=== PATIENT | male | born 1960 | race Caucasian/White ===

== ENCOUNTER 2021-11-05 07:32 | Day surgery (SDC) | payer BC, SELFPAY ==
[2021-11-05 06:40] VITALS: BP 102/71; PULSE 93; RESP 16; TEMP 36.3; O2SAT 95; BMI 34.9
--- NOTE | 2021-11-05 08:18 | PM.ORPRC ---
Procedure Note Date of procedure: 11/05/21 Procedure: Preop diagnosis: Right upper extremity carpal tunnel syndrome Postop diagnosis: Right upper extremity carpal tunnel syndrome Procedure: Right upper extremity carpal tunnel release Anesthesia: Local Surgeon: Richard Grant MD civil engineering assistant: Fady Galeana PA-C EBL: 5 mL Complications: None Specimens: None Drains: None Indications: The patient has a history of right upper extremity carpal tunnel syndrome symptoms. Despite appropriate nonoperative management consisting of nighttime bracing and occupational therapy they continue to have symptoms. Operative intervention was recommended. The risks, benefits alternatives and expected outcomes were discussed in detail. These included but were not limited to: Infection, bleeding, injury to blood vessel or nerve, venous thromboembolism. All questions were answered to their satisfaction. The patient was placed supine on the operating room table. Local anesthesia was established with 0.5% Marcaine without epinephrine and 2% lidocaine without epinephrine. The hand was prepped and draped in usual sterile fashion. The limb was elevated the forearm pneumatic tourniquet was inflated to 250 mm of mercury. A longitudinal incision was made centered over the radial border of the ring finger at the base of the palm. Subcutaneous dissection was sharply taken through the palmar fascia and the palmaris brevis to the transverse carpal ligament. The ligament was divided in line with the incision. Proximal and distal dissection was carried with tenotomy and Metzenbaum scissors for a wide decompression of the carpal tunnel. The tourniquet was released , bleeding was controlled with direct pressure. The wound was closed with a 3-0 nylon. A bulky dry dressing was applied, sponge and needle counts were correct x 2. The patient tolerated the procedure well, there were no apparent complications. They were sent to same day surgery in satisfactory condition. Plan: Use of the hand as tolerates. Discontinue the intraoperative dressing on postoperative day 3 and may get the wound wet as tolerates. Follow up in the office in 2 weeks for a wound check and suture removal.
--- NOTE | 2021-11-06 07:37 | SUR.PHASEII ---
Late entries for charting and hold que activation due to system downtime.
--- NOTE | 2021-11-14 10:48 | SUR.OPER ---
late entries for charting due to system downtime. This nurse documenting from paper copy of nurse during said downtime.
== END 2021-11-05 22:00 | disposition home or self-care (01) ==
PROVIDERS: PCP Physician Assistant Medical; Visit Provider Orthopaedic Surgery
PROC: (CPT 64721; principal; 2021-11-05 07:30)
DX: G56.01 Carpal tunnel syndrome, right upper limb (principal)
CPT/HCPCS: 64721

== ENCOUNTER 2021-11-14 07:35 | Inpatient (IN) | payer BC, SELFPAY ==
[2021-11-14] VITALS (20 sets, daily range): BP systolic 82–107; BP diastolic 64–83; PULSE 68–96; RESP 12–28; TEMP 36.1–36.8; O2SAT 90–98; BMI 34.9; BMI 35.1
--- NOTE | 2021-11-14 08:02 | CRLHL7_ITS ---
For Patients: As a result of the Cures Act, medical imaging exams and procedure reports are released immediately into your electronic medical record. You may view this report before your referring provider. If you have questions, please contact your health care provider. INDICATION: Chest pain TECHNIQUE: Chest 1 view COMPARISON: 06/26/2021 FINDINGS: Cardiovascular and mediastinum: Cardiac silhouette is prominent. There is tortuosity of the aorta. Lungs and pleural spaces: Lungs are clear. No sign of infiltrate or mass. No sign of pleural effusion. No pneumothorax. Bones and soft tissues: No significant findings. IMPRESSION: No acute findings. Dictated by Kenny Cervantes MD @ 11/14/2021 8:32:56 AM (Electronically Signed)
--- NOTE | 2021-11-14 08:02 | CRLHL7_ITS ---
For Patients: As a result of the 21st Century Cures Act, medical imaging exams and procedure reports are released immediately into your electronic medical record. You may view this report before your referring provider. If you have questions, please contact your health care provider. INDICATION: Chest pain, shortness of breath, shoulder pain. TECHNIQUE: CT chest PE was acquired with 95 mL Isovue 370 IV contrast. Coronal and sagittal reformats were generated. COMPARISON: CT chest from 06/18/2021. FINDINGS: Pulmonary arteries: The quality of enhancement of the pulmonary arteries is adequate. No filling defects to suggest pulmonary emboli. No findings of pulmonary artery hypertension. Thyroid: Unremarkable. Thoracic lymph nodes: Prominent thoracic nodes are unchanged. Mediastinum and esophagus: Unremarkable. Heart and vasculature: Unremarkable. Lungs: Scattered lucencies are compatible with mild emphysema. Stable changes of scarring and bronchial wall thickening in the right middle lobe, probable bronchiectasis. Subpleural nodule in the right lower lobe is similar to prior and measures approximately 8 mm (/99). Pleura: Unremarkable. Chest wall: Unremarkable. Upper abdomen: No acute or significant findings. Bones: Unremarkable for age. IMPRESSION: 1. No pulmonary embolism. 2. Stable emphysematous changes and 8 mm nodule in the right lower lobe. 3. Stable prominent thoracic nodes, of unclear etiology. This could be reactive, infectious, or indicate malignancy. Consider follow-up evaluation to document stability/resolution. SOCIETY GUIDELINES - SOLID NODULES: SINGLE LOW RISK - nodule less than 6 mm: No routine follow-up. - nodule 6-8 mm: CT at 6-12 months, then consider CT at 18-24 months. - nodule greater than 8 mm: Consider CT at 3 months, PET/CT or tissue sampling. SINGLE HIGH RISK - nodule less than 6 mm: Optional CT at 12 months. - nodule 6-8 mm: CT at 6-12 months, then CT at 18-24 months. - nodule greater than 8 mm: Consider CT at 3 months, PET/CT or tissue sampling. MULTIPLE LOW RISK - nodule less than 6 mm: No routine follow-up. - nodule 6-8 mm: CT at 3-6 months, then consider CT at 18-24 months. - nodule greater than 8 mm: CT at 3-6 months, then consider CT at 18-24 months. MULTIPLE HIGH RISK - nodule less than 6 mm: Optional CT at 12 months. - nodule 6-8 mm: CT at 3-6 months, then at 18-24 months. - nodule greater than 8 mm: CT at 3-6 months, then at 18-24 months. Please note that all CT scans at this facility use dose modulation, iterative reconstruction, and/or weight-based dosing when appropriate to reduce radiation dose to as low as reasonably achievable. Dictated by Guillermo Busby MD @ 11/14/2021 10:47:59 AM (Electronically Signed)
--- NOTE | 2021-11-14 08:08 | ED_ITS ---
HPI - General Adult General Time Seen by Provider: 08:08 Date Seen: 11/14/21 Chief complaint: Chest Pain Stated complaint: Chest pain,shortness of breath Time Seen by Provider: 11/14/21 08:01 Source: patient Mode of arrival: ambulatory Limitations: no limitations History of Present Illness HPI narrative: Patient is a 60 year white male has has history of congestive heart failure. He has ?1/2 his heart does not work?. He has worked up with Dr. 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 He describes some type of arrhythmia. By my read his EKG shows normal sinus rhythm with limited R-wave progression she got limited amplitude he has Q- waves inferiorly. He reports he still having significant chest pain, he presents to the emergency department. This will come up at 3 in the morning, he has noticed no excessive leg swelling, he also feels short of breath nondiaphoretic not nauseated. Related Data Home Medications Medication Instructions Recorded Confirmed acetaminophen 500 mg tablet 500 mg PO PRN 10/31/21 10/31/21 aspirin 81 mg tablet,delayed 81 mg PO DAILY 10/31/21 10/31/21 release atorvastatin 20 mg tablet 20 mg PO .Bedtime 10/31/21 10/31/21 cholecalciferol (vitamin D3) 25 1,000 unit PO DAILY 10/31/21 10/31/21 mcg (1,000 unit) tablet cyanocobalamin (vitamin B-12) 500 1,000 mcg PO DAILY 10/31/21 10/31/21 mcg tablet multivitamin with iron 1 tab PO QDAY 10/31/21 10/31/21 varenicline 1 mg tablet 1 mg PO BID 10/31/21 10/31/21 Allergies Allergy/AdvReac Type Severity Reaction Status Date / Time hydrocodone Allergy Mild Nausea Verified 10/31/21 11:07 metoprolol Allergy Mild Nausea Verified 10/31/21 11:07 oxycodone Allergy Mild Nausea Verified 10/31/21 11:07 amlodipine Allergy Unknown Abdominal Verified 10/31/21 11:07 Cramping chlorthalidone Allergy Unknown Angioedema Verified 10/31/21 11:07 terazosin Allergy Unknown Dizziness Verified 10/31/21 11:07 Beta Adrenergic Blockers Allergy Mild Nausea Uncoded 10/31/21 11:07 Review of Systems Status of ROS: Reports: 10 or more systems reviewed and unremarkable except as noted in History and below [facility] Surgical History Status post carpal tunnel release Status post right knee replacement Exam Narrative: Exam Narrative: Objective: Vital signs unremarkable other than slightly elevated respiratory rate, O2 sats 96% on room air HEENT is unremarkable, alert oriented x3 Neck is supple Chest is diminished air exchange bilaterally but no rales or wheezing. Heart rate and rhythm regular 2/6 systolic murmur occasional ectopic beat abdomen benign soft no masses Extremities are no edema neurologic nonfocal Skin warm and dry Const: Vital Signs, click to edit/add: Vital Signs - 24 hr 11/14/21 07:47 11/14/21 09:00 Temperature 97.0 F L Pulse Rate 93 Pulse Rate [Right Pulse Oximeter] 96 Respiratory Rate 28 H 14 Blood Pressure 103/76 Blood Pressure [Le ft Upper Arm] 107/78 Pulse Oximetry 96 97 Oxygen Delivery Me thod Room Air Course Course Hospital Course: Patient will be get getting a lab workup as well troponin EKGs, CT scan of the chest with IV contrast and a portable chest x-ray. Will give him aspirin, morphine, oxygen as needed Vital Signs Vital signs: Initial Vital Signs Temperature 97.0 F L 11/14/21 07:47 Temperature Source Temporal Artery Scan 11/14/21 07:47 Pulse Rate 96 11/14/21 07:47 Pulse Rhythm 11/14/21 07:47 Respiratory Rate 28 H 11/14/21 07:47 Blood Pressure 107/78 11/14/21 07:47 Blood Pressure Mean 87 11/14/21 07:47 Blood Pressure Position Sitting 11/14/21 07:47 Pulse Oximetry 96 11/14/21 07:47 Oxygen Delivery Method 11/14/21 07:47 Vital Signs Temperature 97.0 F L 11/14/21 07:47 Pulse Rate 96 11/14/21 07:47 Respiratory Rate 28 H 11/14/21 07:47 Blood Pressure 107/78 11/14/21 07:47 Pulse Oximetry 96 11/14/21 07:47 Oxygen Delivery Method 11/14/21 07:47 Temperature 97.0 F L 11/14/21 07:47 Pulse Rate 93 11/14/21 09:00 Respiratory Rate 14 11/14/21 09:00 Blood Pressure 103/76 11/14/21 09:00 Pulse Oximetry 97 11/14/21 09:00 Oxygen Delivery Method 11/14/21 07:47 Medical Decision Making MDM Narrative Medical decision making narrative: The patient has a history of congestive heart failure, COPD. He presents with chest pain and shortness of breath non hypoxic. Rule out acute coronary syndrome rule out exacerbation of COPD, rule out congestive heart failure, rule out COVID, rule out pneumonia. Patient with above-mentioned lab studies hemodynamic monitoring placed, disposition as above. Addendum: The patient's chest x-ray by my review looks unremarkable his EKG shows limited R-wave progression inferior Q-waves, his troponin I is will 0.1 which is abnormal in high. His pain is better but yet only down to a 3 or 4. He has been started on IV nitroglycerin, IV heparin, will make arrangements for transfer for Cardiology assessment at [facility] pending their availability. Patient is stable at this point medications have been given, and transfer sheets completed. Addendum: After discussion with [place] cardiology, they felt that this was not ischemic, he had no coronary artery disease noted on angiogram couple of months ago. Apparently has an alcohol history, and they recommended serial troponins which she typically runs in the 0.1-0.15 range, cardiac monitoring, rhythm monitoring and an echo with available within the next day or 2. Will discuss with our hospitalists and make disposition planning. Lab Data Labs: Lab Results 11/14/21 11/14/21 11/14/21 Range/Units 07:58 07:58 07:58 WBC 13.86 H (4.50-11.00) K/uL RBC 4.73 (4.30-5.90) m/uL Hgb 14.2 (13.5-17.5) gm/dL Hct 42.9 (37.0-53.0) % MCV 91 (80-100) fL MCH 30 (26-34) pg MCHC 33 (32-36) gm/dL RDW Coeff of Maximo 16.4 H (11.5-15.5) % Plt Count 426 (140-440) K/uL Neut % (Auto) 66.2 (42.0-72.0) % Lymph % (Auto) 20.3 (20-44) % Charles % (Auto) 10.5 (0.0-11.0) % Eos % (Auto) 2.4 (0.0-7.0) % Baso % (Auto) 0.5 (0.0-3.0) % Neut # (Auto) 9.20 H (1.7-7.0) K/uL Lymph # (Auto) 2.80 (0.90-2.90) K/uL Charles # (Auto) 1.50 H (0.00-0.90) K/UL Eos # (Auto) 0.30 (0.00-0.50) K/uL Baso # (Auto) 0.10 (0.00-0.30) K/uL Abs Immat Gran (auto) 0.02 (0.00-0.30) K/uL APTT 32 (23-33) Seconds Sodium 137 (135-149) mmol/L Potassium 4.0 (3.6-5.1) mmol/L Chloride 102 (96-114) mmol/L Carbon Dioxide 23 (20-32) mmol/L BUN 18 (7-30) mg/dL Creatinine 1.2 (0.5-1.5) mg/dL Estimated Creat Clear 67.98 Estimated GFR 68 ml/min Glucose 135 H (60-115) mg/dL Lactate (0.5-1.9) mmol/L Calcium 9.3 (8.4-10.6) mg/dL Total Bilirubin 0.4 (0.1-1.5) mg/dL Direct Bilirubin 0.2 (0.0-0.5) mg/dL AST 26 (12-35) U/L ALT 18 (4-50) U/L Alkaline Phosphatase 79 (40-150) U/L Troponin I 0.10 H* (0.01-0.04) ng/mL C-Reactive Protein 1.4 H (0.5-1.0) mg/dL NT-Pro-B Natriuret Pep 2360 H (0-125) PG/mL Total Protein 7.2 (6.0-8.3) g/dL Albumin 4.4 (3.3-5.0) g/dL Salicylates < 1.0 L (1.0-10) mg/dL SARS-CoV-2 (PCR) (Negative) POC Troponin I (0.01-0.04) ng/ml 11/14/21 11/14/21 11/14/21 Range/Units 07:58 07:58 07:58 WBC (4.50-11.00) K/uL RBC (4.30-5.90) m/uL Hgb (13.5-17.5) gm/dL Hct (37.0-53.0) % MCV (80-100) fL MCH (26-34) pg MCHC (32-36) gm/dL RDW Coeff of Maximo (11.5-15.5) % Plt Count (140-440) K/uL Neut % (Auto) (42.0-72.0) % Lymph % (Auto) (20-44) % Charles % (Auto) (0.0-11.0) % Eos % (Auto) (0.0-7.0) % Baso % (Auto) (0.0-3.0) % Neut # (Auto) (1.7-7.0) K/uL Lymph # (Auto) (0.90-2.90) K/uL Charles # (Auto) (0.00-0.90) K/UL Eos # (Auto) (0.00-0.50) K/uL Baso # (Auto) (0.00-0.30) K/uL Abs Immat Gran (auto) (0.00-0.30) K/uL APTT (23-33) Seconds Sodium (135-149) mmol/L Potassium (3.6-5.1) mmol/L Chloride (96-114) mmol/L Carbon Dioxide (20-32) mmol/L BUN (7-30) mg/dL Creatinine (0.5-1.5) mg/dL Estimated Creat Clear Estimated GFR ml/min Glucose (60-115) mg/dL Lactate 1.6 (0.5-1.9) mmol/L Calcium (8.4-10.6) mg/dL Total Bilirubin (0.1-1.5) mg/dL Direct Bilirubin (0.0-0.5) mg/dL AST (12-35) U/L ALT (4-50) U/L Alkaline Phosphatase (40-150) U/L Troponin I (0.01-0.04) ng/mL C-Reactive Protein (0.5-1.0) mg/dL NT-Pro-B Natriuret Pep (0-125) PG/mL Total Protein (6.0-8.3) g/dL Albumin (3.3-5.0) g/dL Salicylates (1.0-10) mg/dL SARS-CoV-2 (PCR) Negative SARS-CoV-2 (Negative) POC Troponin I 0.09 H (0.01-0.04) ng/ml Critical Care Time Critical Care Time Total Critical Care Time in Minutes: 120 Discharge Plan Discharge Clinical Impression: Heart failure with reduced ejection fraction, COPD (chronic obstructive pulmonary disease), Chest pain Patient Disposition: Admitted As Inpatient Prescriptions: No Action varenicline 1 mg tablet 1 mg PO BID atorvastatin 20 mg tablet 20 mg PO .Bedtime multivitamin with iron Tablet 1 tab PO QDAY cyanocobalamin (vitamin B-12) 500 mcg tablet 1,000 mcg PO DAILY cholecalciferol (vitamin D3) 25 mcg (1,000 unit) tablet 1,000 unit PO DAILY acetaminophen 500 mg tablet 500 mg PO PRN aspirin 81 mg tablet,delayed release (DR/EC) 81 mg PO DAILY Rx Instructions: Resume this dose after competion of the post-operative twice daily dosing regimen per orthopedic surgery. Stand Alone Forms: [facility] Info Instructions
[2021-11-14 08:16] LABS: Lactate* 1.6 mmol/L (0.5-1.9)
[2021-11-14 08:20] LABS: Basophils Percent Auto 0.5 % (0.0-3.0); Eosinophils Percent Auto 2.4 % (0.0-7.0); Hematocrit 42.9 % (37.0-53.0); Hemoglobin* 14.2 gm/dL (13.5-17.5); Immature Granulocytes Abs Auto 0.02 K/uL (0.00-0.30); Lymphocytes Percent Auto 20.3 % (20-44); Mean Corpuscular HGB Conc 33 gm/dL (32-36); Mean Corpuscular Hemoglobin 30 pg (26-34); Mean Corpuscular Volume 91 fL (80-100); Monocytes Percent Auto 10.5 % (0.0-11.0); Neutrophils Percent Auto 66.2 % (42.0-72.0); Platelet Count* 426 K/uL (140-440); RDW Coefficient of Variation % 16.4 % (11.5-15.5); Red Blood Count 4.73 m/uL (4.30-5.90); White Blood Count* 13.86 K/uL (4.50-11.00)
[2021-11-14 08:21] LABS: Slide Review Reflex No
[2021-11-14 08:22] LABS: Troponin, Point-of-Care* 0.09 ng/ml (0.01-0.04)
[2021-11-14] MEDS: ASPIRIN 81 MG TAB.CHEW 324 MG PO (08:28)
[2021-11-14] MEDS: MORPHINE 4 MG/ML INJ IVP ×4 (08:28→19:41)
[2021-11-14 08:34] LABS: Albumin* 4.4 g/dL (3.3-5.0); Chloride* 102 mmol/L (96-114); Sodium* 137 mmol/L (135-149)
[2021-11-14 08:37] LABS: Creatinine* 1.2 mg/dL (0.5-1.5); Est. Creatinine Clearance* 67.98; Estimated Glomerular Filt Rate 68 ml/min
[2021-11-14 08:38] LABS: Alanine Aminotransferase* 18 U/L (4-50); Alkaline Phosphatase* 79 U/L (40-150); Aspartate Amino Transferase* 26 U/L (12-35); Bilirubin Direct* 0.2 mg/dL (0.0-0.5); Bilirubin Total* 0.4 mg/dL (0.1-1.5); Blood Urea Nitrogen* 18 mg/dL (7-30); Calcium* 9.3 mg/dL (8.4-10.6); Carbon Dioxide* 23 mmol/L (20-32); Glucose* 135 mg/dL (60-115); Partial Thromboplastin Time* 32 Seconds (23-33); Total Protein* 7.2 g/dL (6.0-8.3)
[2021-11-14 08:41] LABS: C Reactive Protein* 1.4 mg/dL (0.5-1.0)
[2021-11-14 08:47] LABS: NT Pro B Type NatriureticPept* 2360 PG/mL (0-125)
[2021-11-14 08:51] LABS: Salicylate* < 1.0 mg/dL (1.0-10)
--- NOTE | 2021-11-14 08:53 | PC.NURSE ---
trop 0.[address] Davis
[2021-11-14 09:24] LABS: SARS PCR* Negative SARS-CoV-2 (Negative)
[2021-11-14] MEDS: HEPARIN 5,000 UNIT/0.5 ML INJ 4000 UNIT IVP (09:35)
[2021-11-14] MEDS: HEPARIN 25,000 UNIT/500 ML BAG 20 UNIT IV (09:37)
[2021-11-14] MEDS: NITROGLYCERIN/DEXTROSE 25,000 MCG/250 ML BOTTLE 3 MCG IVPB (10:24)
[2021-11-14] MEDS: MORPHINE 2 MG/ML inj IVP ×3 (11:25→13:28)
--- NOTE | 2021-11-14 11:40 | W.PC.EDHO ---
Primary Language: Kazakh Preferred Language: Orientation Status: [] Alert & Oriented [] Slight Confusion [] Known Dx Dementia Transfers By: [] Assist of 1 [] Assist of 2 [] Lift Active Medications Generic Name Dose Route Start Last Admin Trade Name Freq PRN Reason Stop Dose Admin Nitroglycerin/Dextrose 25,000 mcg in 250 mls @ 3 mls/hr 11/14/21 09:52 11/14/21 10:24 Nitroglycerin/Dextrose IVPB 5 mcg/min .TITRATE PRN 3 mls/hr cp Administration 5 MCG/MIN Morphine Sulfate 2 mg 11/14/21 11:13 11/14/21 11:25 Morphine 2 Mg/Ml Inj IVP 2 mg Q1H PRN Administration Discontinued Medications Generic Name Dose Route Start Last Admin Trade Name Freq PRN Reason Stop Dose Admin Aspirin 324 mg 11/14/21 08:01 11/14/21 08:28 Aspirin 81 Mg Tab.Chew PO 11/14/21 08:02 324 mg ONCE ONE Administration Heparin Sodium (Porcine) 4,000 unit 11/14/21 09:18 11/14/21 09:35 Heparin 5,000 Unit/0.5 Ml Inj IVP 11/14/21 09:19 4,000 unit ONCE ONE Administration Heparin Sodium/Sodium Chloride 25,000 unit in 500 mls @ 0 mls/hr 11/14/21 09:30 11/14/21 09:59 Heparin IV 0 unit/hr .Q0M YULIA 0 mls/hr Infusion Protocol Per Protocol Morphine Sulfate 4 mg 11/14/21 08:01 11/14/21 08:28 Morphine 4 Mg/Ml Inj IVP 11/14/21 08:02 4 mg ONCE ONE Administration Description of Symptoms ED Triage Present Problem pt awoke at 0300 with chest pain, hx of CHF, SOB Description with this which is worse than his usual, did his neb at 0700, pain radiates shoulder and left arm ED Triage Date of Onset of 11/14/21 Symptoms Female History Patient Pain Pain Description [Left Chest] Dull, Achy Pain Intensity [Left Chest] 8 Pain Intensity 5 Pain Intensity 8 Pain Scale Used [Left Chest] Numeric (1 - 10) Pain Scale Used Numeric (1 - 10) Pain Scale Used Numeric (1 - 10) Oxygen Administration Pulse Oximetry 97 Pulse Oximetry 96 Oxygen Delivery Method Room Air
--- NOTE | 2021-11-14 12:32 | ED.NURSE ---
1152-Report given to Joaquin Kim/Nick VANESSA. Pt transferred to CCU2 with belongings, VSS at this time. Nitro gtt running at 5mcg/hr; 3mL/hr. Pt reporting decrease in CP after morphine dose. Pt to BR, ambulatory and tolerating well. Joaquin/Nick RN at bedside to assume care.
--- NOTE | 2021-11-14 12:36 | ED.NURSE ---
IV started by OTF Conrad. #20G IV in R AC.
[2021-11-14 13:10] LABS: Hematocrit 40.6 % (37.0-53.0); Hemoglobin* 13.6 gm/dL (13.5-17.5); Mean Corpuscular HGB Conc 34 gm/dL (32-36); Mean Corpuscular Hemoglobin 30 pg (26-34); Mean Corpuscular Volume 90 fL (80-100); Platelet Count* 384 K/uL (140-440); White Blood Count* 14.02 K/uL (4.50-11.00)
[2021-11-14 13:13] LABS: Slide Review Reflex No
--- NOTE | 2021-11-14 13:20 | PM.IMHP1 ---
Hospitalist- H&P: LINDY History of Present Illness Date Seen: 11/14/21 Chief complaint: Chest pain,shortness of breath Narrative: Connie Pepper is a 60 year old male who awoke at 3:00 a.m. today with severe left chest pain radiating into his left shoulder and somewhat down his left arm. This is similar but worse than the pain he had in June when he was hospitalized with a non ST elevation CO at [facility]. Coronary angiogram at that time showed no obstructive coronary disease. It was clinically suspected that he had nonischemic cardiomyopathy possibly related to alcohol abuse. Further evaluation showed that he had a cardiomyopathy. He was seen by Cardiology on November 06 where worsening of his cardiomyopathy was noted despite abstinence from alcohol and tobacco.. since June. He has been managed with standard therapy for heart failure with reduced ejection fraction. Echocardiogram obtained on October 15 showed ejection fraction of 30-35% down from 42% in June. He had mild concentric LVH, normal left ventricular size, moderately dilated right ventricle with moderately reduced global function. It mild aortic regurgitation, mild mitral regurgitation and moderate tricuspid regurgitation. Cardiac MRI and referral to [facility] was ordered for further evaluation of his worsening heart failure. In June [address] scan of his chest which showed thoracic lymphadenopathy. He had an outpatient evaluation with bronchoscopy and endoscopic ultrasound-guided biopsy of lymphadenopathy. This showed probable reactive nodes without evidence of malignancy or tuberculosis. He is known to have COPD and has been started on inhaled bronchodilators for that. Review of Systems Narrative: Patient reports he has been generally doing well except for his progressive exertional dyspnea, exercise intolerance and now recurrence of his chest pain. He has not had any fever. He does have some chronic cough. He has been able to eat and drink. He has done work to improve his lifestyle. He stop drinking and smoking. He is trying to eat a healthy diet. He is having no abdominal pain. No history of bleeding or blood clotting problems. [facility] Medical History Exertional dyspnea Thoracic lymphadenopathy Surgical History (Updated 11/14/21 @ 13:29 by Chidi Wilder MD) Status post carpal tunnel release Status post right knee replacement Family History (Updated 11/14/21 @ 13:31 by Chidi Wilder MD) Uncle CHF (congestive heart failure) Diabetes Brother Alcoholism High blood pressure Father Esophageal cancer Social History (Updated 11/14/21 @ 13:32 by Chidi Wilder MD) Narrative: Formally was a smoker, 48 pack-year history and quit in June. Formally drank alcohol heavily and quit in June 2021 as well. Has increasingly become a cardiac cripple with very poor exercise tolerance and dyspnea with any activity. Meds Home Medications and Allergies Home Medications Medication Instructions Recorded Confirmed Type aspirin 81 mg tablet,delayed 81 mg PO DAILY 10/31/21 11/14/21 History release atorvastatin 20 mg tablet 20 mg PO DAILY 10/31/21 11/14/21 History multivitamin with iron 1 tab PO QDAY 10/31/21 11/14/21 History albuterol sulfate 90 mcg/actuation 1 - 2 puff inhalation Q4H PRN 11/14/21 11/14/21 History aerosol inhaler bupropion HCl 300 mg 24 hr tablet, 300 mg PO DAILY 11/14/21 11/14/21 History extended release ipratropium 0.5 mg-albuterol 3 mg 3 ml inhalation QID 11/14/21 11/14/21 History (2.5 mg base)/3 mL nebulization soln metoprolol succinate 25 mg 12.5 mg PO HS 11/14/21 11/14/21 History tablet,extended release 24 hr sacubitril 24 mg-valsartan 26 mg 1 tab PO BID 11/14/21 11/14/21 History tablet (Entresto) thiamine HCl (vitamin B1) 100 mg 100 mg PO DAILY 11/14/21 11/14/21 History tablet tiotropium bromide 18 mcg capsule 1 cap inhalation DAILY 11/14/21 11/14/21 History with inhalation device (Spiriva with HandiHaler) torsemide 20 mg tablet 20 mg PO DAILY 11/14/21 11/14/21 History Allergies Allergy/AdvReac Type Severity Reaction Status Date / Time hydrocodone Allergy Mild Nausea Verified 10/31/21 11:07 metoprolol Allergy Mild Nausea Verified 10/31/21 11:07 oxycodone Allergy Mild Nausea Verified 10/31/21 11:07 amlodipine Allergy Unknown Abdominal Verified 10/31/21 11:07 Cramping chlorthalidone Allergy Unknown Angioedema Verified 10/31/21 11:07 terazosin Allergy Unknown Dizziness Verified 10/31/21 11:07 Beta Adrenergic Blockers Allergy Mild Nausea Uncoded 10/31/21 11:07 Exam Narrative: Exam Narrative: He is alert and appears in no obvious distress. Eyes normal. Sclerae nonicteric. Oropharynx is normal. He has a small airway. Neck is supple without mass or adenopathy. No jugular venous distension. Respirations are clear to auscultation without wheezing rales or rhonchi. Cardiovascular: S1, S2, regular rate and rhythm. No murmur gallop or rub. Abdomen: Bowel sounds active. Abdomen is soft without tenderness or mass. Extremities with no edema. He has intact peripheral pulses. He moves all 4 extremities well. Extremities are warm to touch. Const: Vital Signs, click to edit/add: Vital Signs - 24 hr 11/14/21 07:47 11/14/21 09:00 11/14/21 09:30 Temperature 97.0 F L Pulse Rate 93 90 Pulse Rate [Right Pulse Oximeter] 96 Respiratory Rate 28 H 14 16 Blood Pressure 103/76 100/83 Blood Pressure [Le ft Upper Arm] 107/78 Pulse Oximetry 96 97 93 Oxygen Delivery Me thod Room Air 11/14/21 10:00 11/14/21 10:30 11/14/21 11:00 Temperature Pulse Rate 91 90 91 Pulse Rate [Right Pulse Oximeter] Respiratory Rate 21 20 23 Blood Pressure 101/77 93/70 100/75 Blood Pressure [Le ft Upper Arm] Pulse Oximetry 92 96 95 Oxygen Delivery Me thod 11/14/21 11:30 11/14/21 11:40 11/14/21 12:00 Temperature Pulse Rate 86 89 Pulse Rate [Right Pulse Oximeter] Respiratory Rate 17 12 Blood Pressure 82/64 L 95/73 95/73 Blood Pressure [Le ft Upper Arm] Pulse Oximetry 93 94 Oxygen Delivery Me thod Documenting provider has reviewed patient's vital signs: yes Hospitalist - H&P: Result Labs Labs: Short CBC 11/14/21 11/14/21 Range/Units 07:58 13:03 WBC 13.86 H 14.02 H (4.50-11.00) K/uL Hgb 14.2 13.6 (13.5-17.5) gm/dL Hct 42.9 40.6 (37.0-53.0) % Plt Count 426 384 (140-440) K/uL [facility] 11/14/21 07:58 Sodium 137 Potassium 4.0 Chloride 102 Carbon Dioxide 23 BUN 18 Creatinine 1.2 Glucose 135 H Calcium 9.3 Cardiac Enzymes 11/14/21 Range/Units 07:58 Troponin I 0.10 H* (0.01-0.04) ng/mL Liver Function 11/14/21 Range/Units 07:58 Total Bilirubin 0.4 (0.1-1.5) mg/dL Direct Bilirubin 0.2 (0.0-0.5) mg/dL AST 26 (12-35) U/L ALT 18 (4-50) U/L Alkaline Phosphatase 79 (40-150) U/L Albumin 4.4 (3.3-5.0) g/dL Imaging CT scan - chest: Radiologist's impression: CT scan of the chest shows no pulmonary embolism. Stable emphysematous changes. 8 mm nodule in the right lower lobe. This is not significantly changed from previously. Thoracic lymphadenopathy also unchanged compared to June. Assessment and Plan Assessment and plan (1) Non-ST elevation myocardial infarction (NSTEMI): Status: Acute Assessment and Plan: Continue nitroglycerin drip and heparin drip pending troponins and symptoms Follow troponins. Will treat for coronary artery disease pending troponins, electrocardiographic monitoring and symptoms (2) Chest pain: Status: Acute Assessment and Plan: Evaluation does not show other obvious cause for current chest pain. Continue to monitor cardiac status and look for other causes of chest pain (3) Thoracic lymphadenopathy: Status: Acute Assessment and Plan: Stable and not likely to be the cause of chest pain but may be a clue to other causes of chest pain (4) COPD (chronic obstructive pulmonary disease): Status: Acute Assessment and Plan: Stable without acute exacerbation (5) Heart failure with reduced ejection fraction: Status: Acute Assessment and Plan: Repeat echo. Reassess heart failure and treatment (6) Exertional dyspnea: Status: Acute Assessment and Plan: Quite disabled by exertional dyspnea Plan Admit to the hospital for cardiac monitoring and treatment. Further investigation depending on his clinical course. Total time spent today is 70 minutes in critical care evaluation and treatment
[2021-11-14] MEDS: IPRAT-ALBUT 0.5-2.5 MG/3 ML NEB 1 NEB IH ×3 (13:31→21:21)
[2021-11-14 13:36] LABS: INR 1.18 (0.91-1.10); Partial Thromboplastin Time* 31 Seconds (23-33); Prothrombin Time 15.5 Seconds
[2021-11-14 13:47] LABS: Troponin I* 0.08 ng/mL (0.01-0.04)
[2021-11-14 14:08] LABS: Magnesium* 1.8 mg/dL (1.5-2.6)
[2021-11-14] MEDS: ACETAMINOPHEN 500 MG TABLET 1000 MG PO ×2 (14:42→23:59)
--- NOTE | 2021-11-14 15:36 | PC.NURSE ---
Pt was admitted 1200, see admission charting. at bedside and dropped off his Entresto placed in med bin after giving AM dose later due to admit. The pt reported pain 10/10 with improvement after Morphine given see MAR for times. He reported OROZCO given Tylenol. Up to BR x1 without difficulty. Tele shows HR 90's and when resting reading was 30's EKG done and HR remains in the 90's MD updated. The tele reading measured around 90's when the HR stated 90. He does desat 86% when resting. Pt has dissolvable stitches to Right hand and will see Dr. Grant on Friday and MRI at [place] Friday.
[2021-11-14] MEDS: ONDANSETRON 2 MG/ML inj 4 MG IVP ×2 (17:13→23:40)
[2021-11-14] MEDS: IBUPROFEN 600 MG TABLET PO (17:42)
[2021-11-14] MEDS: SODIUM CHLORIDE 0.9 % (FLUSH) 10 ML SYRINGE 5 ML IVF ×2 (19:43→21:22)
--- NOTE | 2021-11-14 19:53 | PC.NURSE ---
End of Shift ([id number]): Patient pleasant and cooperative. Afebrile. Rating left chest pain 5-6/10. PRN Morphine given x1. Patient had episode of nausea/dry heaving, no emesis, and PRN Zofran given x1. Updated MD. Up to bathroom with SBA.
[2021-11-14] MEDS: ATORVASTATIN 10 MG TABLET 20 MG PO (21:20)
--- NOTE | 2021-11-14 23:35 | PC.NURSE ---
pt verbalized inability to urinate. Bladder scan at 2130 showed 215cc's in bladder, pt was going to attempt to sit on toilet and try to urinate. chest pain continues but is improving slightly per patient.
[2021-11-15] VITALS (19 sets, daily range): BP systolic 93–121; BP diastolic 67–78; PULSE 83–113; RESP 16–22; TEMP 36.1–36.6; O2SAT 91–96
[2021-11-15] MEDS: IBUPROFEN 600 MG TABLET PO ×2 (00:48→09:05)
[2021-11-15] MEDS: MAG HYDROX/ALUMINUM HYD/SIMETH 30 ML ORAL.SUSP 15 ML PO (00:48)
[2021-11-15] MEDS: MORPHINE 4 MG/ML INJ IVP ×6 (01:36→23:59)
--- NOTE | 2021-11-15 03:03 | PC.NURSE ---
Addendum entered by Madi Fry RN 11/15/21 06:22: Had numerous short episodes of WAQAR type desaturations overnite monitored continuously on 2LNC. Addendum entered by Madi Fry RN 11/15/21 06:17: Pt up to void at 0600 took in 750mls water, voided 150mls total along with x1 from previous. Bladder scanned for 156 PVR. Reports feeling improved. Original Note: BP 96/74, O2 sats 90% 2LNC. Tele NSR w/BBB then seemed to be 3rd deg AVB so 12 lead done, c/o increase in chest pain about 0200 while doing 12 lead w/associated relative bradycardia viewed so printed out and then returned to baseline 10/14. At 0300 noted NSR rate 84. Gave Tylenol, Ibuprofen and Maalox for CP and low grade headache both usual pattern per pt. 0200 gave MS 4mg after those provided insufficient relief. Pt reports better pain control in between exacerbations. Lungs clear dim bases IS provided used to 1999. C/o poor urination voided 75mls dark hima urine at 0130 encouraged po fluids.
[2021-11-15] MEDS: OMEPRAZOLE 20 MG CAPSULE DR PO (06:33)
[2021-11-15 07:11] LABS: HCO3 VBG 24 mmol/L (21-28); PCO2 VBG 40 mmHG (40-50); PO2 VBG 84.6 mmHG (25-47)
[2021-11-15 07:18] LABS: Basophils Percent Auto 0.6 % (0.0-3.0); Eosinophils Percent Auto 2.9 % (0.0-7.0); Hematocrit 41.4 % (37.0-53.0); Hemoglobin* 13.7 gm/dL (13.5-17.5); Immature Granulocytes Abs Auto 0.01 K/uL (0.00-0.30); Lymphocytes Percent Auto 27.1 % (20-44); Mean Corpuscular HGB Conc 33 gm/dL (32-36); Mean Corpuscular Hemoglobin 30 pg (26-34); Mean Corpuscular Volume 91 fL (80-100); Monocytes Percent Auto 13.1 % (0.0-11.0); Neutrophils Percent Auto 56.2 % (42.0-72.0); Platelet Count* 405 K/uL (140-440); RDW Coefficient of Variation % 16.3 % (11.5-15.5); Red Blood Count 4.54 m/uL (4.30-5.90); White Blood Count* 11.68 K/uL (4.50-11.00)
[2021-11-15 07:19] LABS: Slide Review Reflex No
[2021-11-15 07:40] LABS: Chloride* 99 mmol/L (96-114); Potassium* 4.6 mmol/L (3.6-5.1); Sodium* 133 mmol/L (135-149)
[2021-11-15 07:43] LABS: Creatinine* 1.3 mg/dL (0.5-1.5); Est. Creatinine Clearance* 62.75; Estimated Glomerular Filt Rate 62 ml/min
[2021-11-15 07:44] LABS: Blood Urea Nitrogen* 26 mg/dL (7-30); Calcium* 9.2 mg/dL (8.4-10.6); Carbon Dioxide* 22 mmol/L (20-32); Glucose* 89 mg/dL (60-115)
[2021-11-15 07:46] LABS: C Reactive Protein* 4.8 mg/dL (0.5-1.0)
[2021-11-15 08:01] LABS: Troponin I* 0.09 ng/mL (0.01-0.04)
[2021-11-15] MEDS: IPRAT-ALBUT 0.5-2.5 MG/3 ML NEB 1 NEB IH ×4 (09:04→20:37)
[2021-11-15] MEDS: MULTIVITAMIN/MINERALS 1 TABLET 1 TAB PO (09:05)
[2021-11-15] MEDS: buPROPion XL 150 MG TABLET 300 MG PO (09:05)
[2021-11-15] MEDS: ASPIRIN 81 MG TABLET EC PO (09:05)
[2021-11-15] MEDS: METOPROLOL SUCCINATE (XL) 25 MG TAB 12.5 MG PO (09:06)
[2021-11-15] MEDS: TORSEMIDE 20 MG TABLET PO (09:06)
[2021-11-15] MEDS: SODIUM CHLORIDE 0.9 % (FLUSH) 10 ML SYRINGE 5 ML IVF ×4 (09:07→23:59)
--- NOTE | 2021-11-15 12:23 | PC.NURSE ---
Patient called for c/o chest pain and shortness of breath at 1155. Stated pain was sharp through left chest, radiating to left shoulder and down left arm, 8/10. BP 93/72, gave MSO4 2mg IV at 1157, applied oxygen 2l/nc. Repeated EKG. Notified Dr. Wilder. Troponin repeat order. Reassessed chest pain, decreased to 6/10, decreased shortness of breath. BP 97/71, repeated MSO4 2mg IVP at 1209.At 1213, patient reported continuing decreased chest pain and shortness of breath. Patient instructed to notify nurse if any increase in symptoms or new symptoms start. Patient verbalized understanding.
[2021-11-15] MEDS: IBUPROFEN 400 MG TABLET PO ×2 (14:27→20:37)
[2021-11-15] MEDS: FUROSEMIDE 10 MG/ML inj 40 MG IVP (15:34)
--- NOTE | 2021-11-15 15:57 | P.IMPN_ITS ---
Progress Note: A&P Assessment and plan (1) Non-ST elevation myocardial infarction (NSTEMI): Status: Acute Assessment and Plan: Chest pain with troponin elevations. I think it is likely his troponins are chronically elevated. Cause of chest pain of uncertain. Serial electrocardiograms show no acute changes. (2) Chest pain: Status: Acute Assessment and Plan: Intermittent without obvious provocative or palliative features. (3) Thoracic lymphadenopathy: Status: Acute Assessment and Plan: Chronic and stable (4) COPD (chronic obstructive pulmonary disease): Status: Acute Assessment and Plan: Chronic and not significantly symptomatic (5) Heart failure with reduced ejection fraction: Status: Acute Assessment and Plan: Echo today shows possible worsening of ejection fraction at 25-30% with severe LVH and diastolic dysfunction. formal echo read is pending (6) Exertional dyspnea: Status: Acute Assessment and Plan: Chronic and stable Plan Observe in the hospital. Patient has scheduled cardiology follow-up as an outpatient 11 days. Remains to be seen whether he needs more urgent evaluation. Time Spent With Patient Total time spent: Total time spent today is 40 minutes, 30 minutes in coordination of care and discussing with patient and Cardiology ongoing evaluation management. Subjective Date Seen: 11/15/21 Interval history: 60-year-old male seen in followup of chest pain and cardiomyopathy. Patient continues to have intermittent episodes of relatively severe left chest and left shoulder pain. He is getting improved relief with some ibuprofen and some morphine. Exam Narrative: Exam Narrative: He is alert and appears in no distress. Breathing is unlabored. Respirations are clear to auscultation. Cardiovascular: S1, S2, regular rate and rhythm. No murmur gallop or rub. Abdomen: Bowel sounds active. Abdomen is soft without tenderness. Extremities without significant edema. Good peripheral pulses. Extremities are warm to touch. Const: Vital Signs, click to edit/add: Vital Signs - 24 hr 11/14/21 16:00 11/14/21 16:00 11/14/21 20:00 Temperature 98.0 F 98.1 F Pulse Rate Pulse Rate [Left R adial] 90 90 92 Respiratory Rate 16 16 16 Blood Pressure [Le ft Arm] 96/66 96/73 Pulse Oximetry 96 93 Oxygen Delivery Me thod Room Air Nasal Cannula Oxygen Flow Rate 2 11/14/21 23:51 11/14/21 23:52 11/15/21 01:17 Temperature 97.1 F L Pulse Rate 86 113 H Pulse Rate [Left R adial] 87 Respiratory Rate 16 Blood Pressure [Le ft Arm] 96/74 Pulse Oximetry 90 Oxygen Delivery Me thod Nasal Cannula Oxygen Flow Rate 2 11/15/21 04:02 11/15/21 09:01 11/15/21 09:04 Temperature 97.2 F L 96.9 F L 96.9 F L Pulse Rate Pulse Rate [Left R adial] 83 86 Respiratory Rate 16 16 Blood Pressure [Le ft Arm] 94/67 121/72 Pulse Oximetry 92 94 Oxygen Delivery Me thod Nasal Cannula Nasal Cannula Oxygen Flow Rate 2 1 11/15/21 09:05 11/15/21 07:21 11/15/21 07:00 Temperature 96.9 F L Pulse Rate 83 Pulse Rate [Left R adial] 86 Respiratory Rate 16 Blood Pressure [Le ft Arm] Pulse Oximetry Oxygen Delivery Me thod Oxygen Flow Rate 11/15/21 11:56 11/15/21 12:09 11/15/21 12:24 Temperature Pulse Rate Pulse Rate [Left R adial] 85 89 89 Respiratory Rate 22 18 16 Blood Pressure [Le ft Arm] 93/72 97/71 Pulse Oximetry 95 95 93 Oxygen Delivery Me thod Room Air Room Air Nasal Cannula Oxygen Flow Rate 2 1 11/15/21 14:27 11/15/21 15:28 Temperature 96.9 F L 97.0 F L Pulse Rate Pulse Rate [Left R adial] 88 Respiratory Rate 20 Blood Pressure [Le ft Arm] 96/69 Pulse Oximetry 91 Oxygen Delivery Me thod Room Air Oxygen Flow Rate Documenting provider has reviewed patient's vital signs: yes Labs Labs: Laboratory Results - last 24 hr 11/15/21 11/15/21 11/15/21 06:48 06:48 06:48 WBC 11.68 H RBC 4.54 Hgb 13.7 Hct 41.4 MCV 91 MCH 30 MCHC 33 RDW Coeff of Maximo 16.3 H Plt Count 405 Neut % (Auto) 56.2 Lymph % (Auto) 27.1 [place] % (Auto) 13.1 H Eos % (Auto) 2.9 Baso % (Auto) 0.6 Neut # (Auto) 6.60 Lymph # (Auto) 3.20 H [place] # (Auto) 1.50 H Eos # (Auto) 0.30 Baso # (Auto) 0.10 Abs Immat Gran (auto) 0.01 VBG pH 7.390 VBG pCO2 40 VBG pO2 84.6 H VBG HCO3 24 Sodium 133 L Potassium 4.6 Chloride 99 Carbon Dioxide 22 BUN 26 Creatinine 1.3 Estimated Creat Clear 62.75 Estimated GFR 62 Glucose 89 Calcium 9.2 Troponin I 0.09 H* C-Reactive Protein 4.8 H
[2021-11-15] MEDS: ONDANSETRON 2 MG/ML inj 4 MG IVP (16:44)
--- NOTE | 2021-11-15 17:44 | CRLHL7_ITS ---
For Patients: As a result of the Century Cures Act, medical imaging exams and procedure reports are released immediately into your electronic medical record. You may view this report before your referring provider. If you have questions, please contact your health care provider. DATE: 02/2022. CLINICAL HISTORY: Acute mental status change. TECHNIQUE: Standard helical CT image acquisition of the brain was performed. COMPARISON: None available. FINDINGS: There is no intracranial hemorrhage. No extra-axial collection, mass effect, or midline shift. John-white matter differentiation is preserved. The ventricles are normal in size and morphology for patient age. The calvarium is unremarkable. The orbits are unremarkable. The paranasal sinuses are unremarkable. Small right mastoid effusion. The soft tissues are unremarkable. IMPRESSION: 1. No CT evidence of acute intracranial abnormality. 2. Small right mastoid effusion. Please note that all CT scans at this facility use dose modulation, iterative reconstruction, and/or weight-based dosing when appropriate to reduce radiation dose to as low as reasonably achievable. Dictated by Farhan Reveles MD @ 11/15/2021 6:28:48 PM (Electronically Signed)
--- NOTE | 2021-11-15 19:07 | W.PM.CROSSCO ---
Subjective Subjective Time Seen by Provider: 18:00 Date Seen: 11/15/21 Principal diagnosis: acute mental status change Interval history: I was called to patient's room by nursing staff for an acute change in mental status. Connie was walking with his nurse this afternoon without any worsening of his dyspnea or chest pain during the walk, but nurse noted that O2 sat was 82%. Upon arriving back to his room, he began having nonsensical speech. He was very bothered by this and aware that it was happening. By the time I arrived in his room, patient's speech was normal back to baseline. He was tearful given the circumstances, but denied any other symptoms - specifically, no headache, no weakness of extremities, no paresthesias. His chest pain and dyspnea from arrival has remained stable throughout stay. Objective Objective Data Details: Patient is sitting comfortably in bed, mildly tearful. Pupils are equal round reactive to light bilaterally extraocular movements are intact. Tongue protrudes midline. No pronator drift, no tremor. He is moving all 4 extremities appropriately. Assessment and Plan Assessment and plan (1) Speech abnormality: Status: Acute Plan Stat head CT of the head obtained without any abnormalities. Repeat troponin obtained and stable, no concerning findings on telemetry. Offered twice to call patient's with an update, he refused and states he will update her himself. Patient was reassured by head CT results, continue to follow closely.
--- NOTE | 2021-11-15 19:33 | PC.NURSE ---
End of shift-- Very pleasant and cooperative, alert and oriented pt. VSS and pt is afebrile. SPO2 maintained >90% on RA while awake and in bed. When pt sleeping, O2 sats were noted to decrease to mid 80s on RA. With ambulation, O2 sats decreased to 82% and pt became SOB after ambulating roughly 100ft. Pt has c/o CP on center and left side of chest which travels to his shoulder and down his left arm continuously today. He has rated it from 2-9 out of 10. MD is aware and it appears well managed with PRN Morphine. Telemetry shows NSR with 1st degree AV block and a BBB. 1+ pitting edema noted in bilateral LE. A few fine crackles noted in posterior bases of lungs. Otherwise CTA. He stated an occasional cough, but none was noted. Urine output has been adequate. He has occasionally c/o nausea and was given Zofran with apparent relief. He ate 100% of a regular diet, but refused lunch and ate only half a yogurt and fruit for dinner. Following ambulation after dinner, pt sat on edge of bed and his speech became incomprehensible for a period of roughly 1-2 minutes. Pt was aware that speech was not making sense and expressed frustration at his inability to speak. Charge nurse and MD were notified and stroke code was called. Episode quickly resolved and did return once for a period of about 30 seconds. Pt was sent to CT scan. See EMR for details. Report to [facility].
[2021-11-15 20:11] LABS: Troponin I* 0.07 ng/mL (0.01-0.04)
[2021-11-15] MEDS: ATORVASTATIN 10 MG TABLET 20 MG PO (20:36)
[2021-11-15] MEDS: ACETAMINOPHEN 500 MG TABLET 1000 MG PO (23:11)
[2021-11-16 00:36] VITALS: PULSE 79
[2021-11-16 03:00] VITALS: BP 87/65; PULSE 86; RESP 16; TEMP 36.2; O2SAT 96
[2021-11-16] MEDS: IBUPROFEN 400 MG TABLET PO ×2 (03:09→09:30)
--- NOTE | 2021-11-16 03:58 | PC.NURSE ---
Addendum entered by Madi Fry RN 11/16/21 06:05: Pt is now a little more verbal, was able to tell me his first name but had to spell his last name. Is now up to void and voided 100mls with PVR 97mls Addendum entered by Madi Fry RN 11/16/21 04:16: BENJAMIN called back and recommended considering an MRI in the AM. Original Note: VSS 2LNC. Tel 1st deg AVB/BBB. C/o CP gave Tylenol, Maalox and then MS 4mg. Pt rested for a while and then when he was to get his 0300 Ibuprofen pt was not able to tell me his name. He was not able to tell me what a pen was or what it does. Pt got a little sleep and then was awakened at 0340 and same sx maybe a little worse expressing himself so BENJAMIN called. Pt was able to HALL equal and strong, pupils equal and reactive, has been drinking water but cont's to have poor UOP.
[2021-11-16 06:46] LABS: HCO3 VBG 21 mmol/L (21-28); PCO2 VBG 37 mmHG (40-50); PO2 VBG 64.6 mmHG (25-47); pH VBG 7.361 (7.32-7.43)
[2021-11-16 06:58] LABS: Basophils Percent Auto 0.3 % (0.0-3.0); Eosinophils Percent Auto 1.1 % (0.0-7.0); Hematocrit 41.6 % (37.0-53.0); Hemoglobin* 14.1 gm/dL (13.5-17.5); Immature Granulocytes Abs Auto 0.04 K/uL (0.00-0.30); Lymphocytes Percent Auto 12.8 % (20-44); Mean Corpuscular HGB Conc 34 gm/dL (32-36); Mean Corpuscular Hemoglobin 31 pg (26-34); Mean Corpuscular Volume 90 fL (80-100); Monocytes Percent Auto 11.3 % (0.0-11.0); Neutrophils Percent Auto 74.2 % (42.0-72.0); Platelet Count* 396 K/uL (140-440); RDW Coefficient of Variation % 15.8 % (11.5-15.5); Red Blood Count 4.61 m/uL (4.30-5.90); White Blood Count* 15.42 K/uL (4.50-11.00)
[2021-11-16 07:00] VITALS: BP 105/80; PULSE 85; PULSE 87; RESP 16; TEMP 36.1; O2SAT 92
[2021-11-16 07:01] LABS: Slide Review Reflex No
[2021-11-16] MEDS: OMEPRAZOLE 20 MG CAPSULE DR PO (07:03)
[2021-11-16 07:10] LABS: Chloride* 97 mmol/L (96-114); Sodium* 130 mmol/L (135-149)
[2021-11-16 07:11] LABS: Potassium* 4.6 mmol/L (3.6-5.1)
[2021-11-16 07:13] LABS: Creatinine* 1.8 mg/dL (0.5-1.5); Est. Creatinine Clearance* 45.32; Estimated Glomerular Filt Rate 42 ml/min
[2021-11-16 07:14] LABS: Blood Urea Nitrogen* 39 mg/dL (7-30); Calcium* 8.9 mg/dL (8.4-10.6); Carbon Dioxide* 18 mmol/L (20-32); Glucose* 91 mg/dL (60-115)
[2021-11-16 07:29] LABS: C Reactive Protein* 12.2 mg/dL (0.5-1.0)
--- NOTE | 2021-11-16 09:11 | PM.IMPN1 ---
Progress Note: A&P Assessment and plan (1) Heart failure with reduced ejection fraction: Status: Acute Assessment and Plan: Progressively worse over the last 5 months despite appropriate medical therapy (2) Chest pain: Status: Acute Assessment and Plan: Improved today. Cause is uncertain. (3) Thoracic lymphadenopathy: Status: Acute Assessment and Plan: Chronic since June. Unclear etiology (4) COPD (chronic obstructive pulmonary disease): Status: Acute Assessment and Plan: No obvious exacerbation. Mild symptoms (5) Stroke: Status: Acute Assessment and Plan: Fluctuating word-finding difficulties overnight. CT negative. MRI and MRA pending. Patient will be transferred before these tests will be done (6) Acute kidney injury: Status: Acute Assessment and Plan: Creatinine went from 1.2-1.8 overnight. Only change was furosemide 40 mg IV given yesterday afternoon. (7) Elevated C-reactive protein (CRP): Status: Acute Assessment and Plan: Unclear what is causing the acute rise in CRP from 1.7 on admission to 12 today Plan Transfer to [facility] for ICU care, invasive monitoring Time Spent With Patient Total time spent: Total time spent today is 1 hour Subjective Date Seen: 11/16/21 Interval history: 60-year-old male seen in followup of hospital admission for heart failure and chest pain. Yesterday echocardiogram showed progressive worsening of his heart failure. Also suggested possible volume overload. He he received furosemide 40 mg IV yesterday afternoon. Overnight he reports his chest pain is better. He had couple episodes during the night where he had word-finding difficulties. That is better this morning but he still is slow to speak. His normally relatively low blood pressure got a little lower last night but never hypotensive. Lowest pressure measured was 87/[address] during the night showed no acute abnormality. Exam Narrative: Exam Narrative: He is alert and appears in no obvious distress. Speech is slower than yesterday but he is oriented and able to communicate. No obvious facial asymmetry. He moves all 4 extremities well. Respirations are clear to auscultation. Cardiovascular: S1, S2, regular rate and rhythm. No murmur gallop or rub. Abdomen: Bowel sounds active. Abdomen is soft without tenderness or mass. Extremities without significant edema. Good peripheral pulses Const: Vital Signs, click to edit/add: Vital Signs - 24 hr 11/15/21 11:56 11/15/21 12:09 11/15/21 12:24 Temperature Pulse Rate Pulse Rate [Left R adial] 85 89 89 Respiratory Rate 22 18 16 Blood Pressure [Le ft Arm] 93/72 97/71 Pulse Oximetry 95 95 93 Oxygen Delivery Me thod Room Air Room Air Nasal Cannula Oxygen Flow Rate 2 1 11/15/21 14:27 11/15/21 15:28 11/15/21 15:19 Temperature 96.9 F L 97.0 F L Pulse Rate 86 Pulse Rate [Left R adial] 88 Respiratory Rate 20 Blood Pressure [Le ft Arm] 96/69 Pulse Oximetry 91 Oxygen Delivery Me thod Room Air Oxygen Flow Rate 11/15/21 16:00 11/15/21 17:38 11/15/21 17:46 Temperature Pulse Rate Pulse Rate [Left R adial] 88 94 93 Respiratory Rate 20 20 20 Blood Pressure [Le ft Arm] 101/78 100/74 Pulse Oximetry 96 96 Oxygen Delivery Me thod Nasal Cannula Nasal Cannula Oxygen Flow Rate 2 2 11/15/21 17:50 11/15/21 19:55 11/15/21 23:20 Temperature 97.8 F 97.1 F L Pulse Rate Pulse Rate [Left R adial] 91 94 97 Respiratory Rate 20 16 16 Blood Pressure [Le ft Arm] 100/76 103/77 98/71 Pulse Oximetry 94 95 93 Oxygen Delivery Me thod Nasal Cannula Nasal Cannula Nasal Cannula Oxygen Flow Rate 2 2 2 11/16/21 00:36 11/16/21 03:00 11/16/21 07:00 Temperature 97.1 F L Pulse Rate 79 85 Pulse Rate [Left R adial] 86 Respiratory Rate 16 Blood Pressure [Le ft Arm] 87/65 L Pulse Oximetry 96 Oxygen Delivery Me thod Nasal Cannula Oxygen Flow Rate 2 Documenting provider has reviewed patient's vital signs: yes Labs Labs: Laboratory Results - last 24 hr 11/15/21 11/15/21 11/16/21 06:48 19:10 06:38 WBC 15.42 H RBC 4.61 Hgb 14.1 Hct 41.6 MCV 90 MCH 31 MCHC 34 RDW Coeff of Maximo 15.8 H Plt Count 396 Neut % (Auto) 74.2 H Lymph % (Auto) 12.8 L [place] % (Auto) 11.3 H Eos % (Auto) 1.1 Baso % (Auto) 0.3 Neut # (Auto) 11.40 H Lymph # (Auto) 2.00 [place] # (Auto) 1.70 H Eos # (Auto) 0.20 Baso # (Auto) 0.00 Abs Immat Gran (auto) 0.04 VBG pH VBG pCO2 VBG pO2 VBG HCO3 Sodium Potassium Chloride Carbon Dioxide BUN Creatinine Estimated Creat Clear Estimated GFR Glucose Calcium Troponin I 0.07 H* C-Reactive Protein TSH 6.930 H 11/16/21 11/16/21 06:38 06:38 WBC RBC Hgb Hct MCV MCH MCHC RDW Coeff of Maximo Plt Count Neut % (Auto) Lymph % (Auto) [place] % (Auto) Eos % (Auto) Baso % (Auto) Neut # (Auto) Lymph # (Auto) [place] # (Auto) Eos # (Auto) Baso # (Auto) Abs Immat Gran (auto) VBG pH 7.361 VBG pCO2 37 L VBG pO2 64.6 H VBG HCO3 21 Sodium 130 L Potassium 4.6 Chloride 97 Carbon Dioxide 18 L BUN 39 H Creatinine 1.8 H Estimated Creat Clear 45.32 Estimated GFR 42 Glucose 91 Calcium 8.9 Troponin I C-Reactive Protein 12.2 H TSH
[2021-11-16] MEDS: buPROPion XL 150 MG TABLET 300 MG PO (09:29)
[2021-11-16] MEDS: ASPIRIN 81 MG TABLET EC PO (09:29)
[2021-11-16] MEDS: IPRAT-ALBUT 0.5-2.5 MG/3 ML NEB 1 NEB IH (09:30)
[2021-11-16] MEDS: METOPROLOL SUCCINATE (XL) 25 MG TAB 12.5 MG PO (09:30)
[2021-11-16] MEDS: MULTIVITAMIN/MINERALS 1 TABLET 1 TAB PO (09:33)
--- NOTE | 2021-11-16 10:27 | PC.NURSE ---
patient transferred to [place] at 1009 for cardiac ICU invasive monitoring and potential medical lab assistant via EMS transport. Spouse in to see patient this AM prior to departure and aware of room number and unit pt will be transferred to. Torsemide held today, otherwise AM meds given. pt reports CP has decreased and now is more worried about aphasia that came on 11/15. Nurse to nurse report given to Naty Horn RN on cardiac ICU at [phone] ([phone]).
== END 2021-11-16 10:09 | disposition short-term general hospital (02) | DRG 190 ==
LOC: ED 09:37 → MEDSURG 11:18
PROVIDERS: Family Medicine; Admitting Provider Family Medicine; Emergency Provider Family Medicine; PCP Physician Assistant Medical; Visit Provider Family Medicine
DX: I21.4 Non-ST elevation (NSTEMI) myocardial infarction (principal); I11.0 Hypertensive heart disease with heart failure; I50.23 Acute on chronic systolic (congestive) heart failure; I63.9 Cerebral infarction, unspecified; R47.89 Other speech disturbances; N17.9 Acute kidney failure, unspecified; I25.2 Old myocardial infarction; I43 Cardiomyopathy in diseases classified elsewhere; J44.9 Chronic obstructive pulmonary disease, unspecified; R59.0 Localized enlarged lymph nodes
CPT/HCPCS: 36415; 51798; 70450; 71045; 71260; 80048; 80076; 80179; 82803; 83605; 83735; 83880; 84443; 84484; 85025; 85027; 85610; 85730; 86140; 87635; 93005; 93306; 94640; 94761; 99285; 99291; 99292; A9153; A9270; J1644; J1940; J2270; J2405; Q9967

== ENCOUNTER 2021-11-16 10:08 | Outpatient (CLI) | payer BC, SELFPAY | END 2021-11-16 10:09 | disposition home or self-care (01) | LOC: AMB 11-28 04:15 | PROVIDERS: PCP Physician Assistant Medical; Visit Provider Family Medicine | DX: I50.9 Heart failure, unspecified (principal); R07.89 Other chest pain; J44.9 Chronic obstructive pulmonary disease, unspecified | CPT/HCPCS: A0425; A0427 ==

== ENCOUNTER 2021-12-02 00:06 | Outpatient (CLI) | payer BC, SELFPAY | END 2021-12-02 00:07 | disposition home or self-care (01) | LOC: AMB 12-04 05:33 | PROVIDERS: PCP Family Medicine; Visit Provider Family Medicine | DX: R07.89 Other chest pain (principal) | CPT/HCPCS: A0425; A0427 ==

== ENCOUNTER 2021-12-02 00:40 | Emergency (ER) | payer BC, SELFPAY ==
[2021-12-02] VITALS (7 sets, daily range): BP systolic 87–94; BP diastolic 63–73; PULSE 76–82; RESP 16–84; TEMP 35.8; O2SAT 96–99
--- NOTE | 2021-12-02 01:21 | PC.NURSE ---
SBP 88. MD at BS and aware
--- NOTE | 2021-12-02 01:28 | ED_ITS ---
HPI - Chest Pain General Chief Complaint: Chest Pain Stated Complaint: chest Pain Time Seen by Provider: 12/02/21 00:42 History of Present Illness HPI narrative: 61-year-old man presenting to the emergency department with complaint of sudden onset of chest pain. Further recollection though he has really been feeling unwell for a few days. Some nausea and some generally fatigued. Started to have some chest pain actually yesterday evening after coming back from the [employer] [facility]. Then woke up out of sleep with much increased sharp and chest pressure mid chest he gestures to the middle of his sternum. Has not had any fever. The just discharged last week from [place] where he had bone and cardiac biopsies. He notes that in artery was nicked in his neck which would be consistent with the scabbing is evident at the left neck. Apparently has been diagnosed with some sort of amyloid deposition. He denies a history of coronary artery disease though on review of records I see a non-STEMI listed. He also has heart failure. No fever. History of CVA. He notes being anticoagulated. He tells me that his chest pain is markedly improved at this point. Now 3 maybe 05/17. In his hospitalization he says that he did have with reference to his coronaries a ?clean? exam although he seems to be referring to an ultrasound as he describes it. Clearly on exam he has had recent right groin access and he says this was for heart biopsy. Able to confirm that white count was over 15,000 on 11/28 date of discharge. Reviewing records later from discharge diagnosis from [place]. Was admitted between 11/16 and 11/28/2021. 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 Angiogram while in hospital apparently showed mild disease in the LAD and circumflex with all vessels widely patent Related Data Home Medications Medication Instructions Recorded Confirmed aspirin 81 mg tablet,delayed 81 mg PO DAILY 10/31/21 12/03/21 release atorvastatin 20 mg tablet 20 mg PO DAILY 10/31/21 12/03/21 multivitamin with iron 1 tab PO QDAY 10/31/21 11/14/21 albuterol sulfate 90 mcg/actuation 1 - 2 puff inhalation Q4H PRN 11/14/21 12/03/21 aerosol inhaler bupropion HCl 300 mg 24 hr tablet, 300 mg PO DAILY 11/14/21 12/03/21 extended release ipratropium 0.5 mg-albuterol 3 mg 3 ml inhalation QID 11/14/21 12/03/21 (2.5 mg base)/3 mL nebulization soln sacubitril 24 mg-valsartan 26 mg 1 tab PO BID 11/14/21 11/14/21 tablet (Entresto) thiamine HCl (vitamin B1) 100 mg 100 mg PO DAILY 11/14/21 12/03/21 tablet tiotropium bromide 18 mcg capsule 1 cap inhalation DAILY 11/14/21 12/03/21 with inhalation device (Spiriva with HandiHaler) torsemide 20 mg tablet 20 mg PO BID 11/14/21 12/03/21 amiodarone 200 mg tablet 400 mg PO DAILY 12/03/21 12/03/21 apixaban 5 mg tablet 5 mg PO BID 12/03/21 12/03/21 losartan 25 mg tablet 12.5 mg PO DAILY 12/03/21 12/03/21 spironolactone 25 mg tablet 25 mg PO DAILY 12/03/21 12/03/21 trazodone 50 mg tablet 50 mg PO HS 12/03/21 12/03/21 Allergies Allergy/AdvReac Type Severity Reaction Status Date / Time hydrocodone Allergy Mild Nausea Verified 10/31/21 11:07 metoprolol Allergy Mild Nausea Verified 10/31/21 11:07 oxycodone Allergy Mild Nausea Verified 10/31/21 11:07 amlodipine Allergy Unknown Abdominal Verified 10/31/21 11:07 Cramping chlorthalidone Allergy Unknown Angioedema Verified 10/31/21 11:07 terazosin Allergy Unknown Dizziness Verified 10/31/21 11:07 Beta Adrenergic Blockers Allergy Mild Nausea Uncoded 10/31/21 11:07 Review of Systems Status of ROS Reports: 10 or more systems reviewed and unremarkable except as noted in History and below [facility] Medical History Exertional dyspnea Thoracic lymphadenopathy Surgical History Status post carpal tunnel release Status post right knee replacement Family History Uncle CHF (congestive heart failure) Diabetes Brother Alcoholism High blood pressure Father Esophageal cancer Social History Narrative: Formally was a smoker, 48 pack-year history and quit in June. Formally drank alcohol heavily and quit in June 2021 as well. Has increasingly become a cardiac cripple with very poor exercise tolerance and dyspnea with any activity. Highest level of school completed/degree received: decline to answer Smoking Status: Never smoker Do you use any of these nicotine containing products: None Second hand tobacco smoke exposure: No How often do you have a drink containing alcohol: never AUDIT-C Alcohol total score: 0 Non-prescribed substance use: denies use Caffeine: No service: No Exam Narrative Exam Narrative: Initial pressures 80s over 60s then mid 90s systolic during my conversation with Mr. Goss. Large man. Appears generally tired. Skin is warm and dry. There is extensive bruising without discrete swelling in the right inguinal/low abdominal area consistent with his cardiac catheterization. In the left neck has a scab and yellow green bruising in the upper left chest that I would presume is related. Oropharynx is moist. Cranial nerves 2-12 are intact. Lungs-appears to be a little breathless in conversation does better as the lower the mask for him. There is some clearing crepitus in the left lung base otherwise good air movement. Cardiovascular is distant. Regular rhythm and rate. Thought maybe there is an S3. Not reproducible pain to palpation across the chest. Extremities are well perfused. Moving all extremities without difficulty. Ankles with mild dependent edema. Nonpitting Const Vital Signs, click to edit/add: Vital Signs - 24 hr 12/02/21 00:53 Temperature 96.5 F L Respiratory Rate 84 H Oxygen Delivery Method Room Air Documenting provider has reviewed patient's vital signs: yes Course Reevaluation(s) Reevaluation #1: Is not reporting chest pain though still with notable nausea. He believes this is related to his medications. Does not want anything to help with the nausea or anything to eat. I discussed elevated white count with him which he says has been present prior. Troponins here tonight are flat and I would suspect elevated related to recent procedures. Blood pressures also remain a little low with sustained map. I think these are probably also somewhat chronic. I do see a blood pressure of 96/72 in paperwork from hospitalization; I do not see trending. Time: 03:16 Reevaluation #2: Chest pain remains gone. Nausea is improved after he has eaten. Returned for a point of care cardiac ultrasound. Mr. Robledo notes himself to be quite familiar with the appearance of his heart on ultrasound. Together we did get some pretty good cardiac windows I would say. Looks to have a symmetric and reasonably dynamic squeeze. I do not see a large pericardial effusion. He does note a history of pericardial effusion. He does not appreciate much if any at this time. I did discuss admission with Mr. Pepper and he is clear that he is not interested in this. He has cardiac follow-up tomorrow as well as a PET scan tomorrow and furthermore today is his birthday and he has other plans. I discussed that we have not ruled out ischemic cardiac event and that he may still be at risk for decompensation otherwise. He says if he is feeling worse he can just come back in. Time: 04:45 Consultations Consultation #1: Spoke with cardiology on-call with [facility]. Unfamiliar with Mr. Wright's case however given what I presented, recommendations were for admission for further monitoring and potential cardiac ultrasound looking for pericardial effusion at a minimum. Time: 04:10 Vital Signs Vital signs: Initial Vital Signs Temperature 96.5 F L 12/02/21 00:53 Temperature Source Temporal Artery Scan 12/02/21 00:53 Respiratory Rate 84 H 12/02/21 00:53 Blood Pressure Position Supine 12/02/21 00:53 Oxygen Delivery Method 12/02/21 00:53 Vital Signs Temperature 96.5 F L 12/02/21 00:53 Respiratory Rate 84 H 12/02/21 00:53 Oxygen Delivery Method 12/02/21 00:53 Temperature 96.5 F L 12/02/21 00:53 Pulse Rate 80 12/02/21 04:30 Respiratory Rate 16 12/02/21 04:30 Blood Pressure 94/70 12/02/21 04:30 Pulse Oximetry 96 12/02/21 04:30 Oxygen Delivery Method 12/02/21 04:00 MDM - Chest Pain MDM Narrative Medical decision making narrative: Complicated medical history with recent cardiac biopsy. thinking will need to trend troponins. Reported to me that initial point of care troponin elevated at 0.22 POC US appears clear of large effusion Medical Records Data Attestation: I reviewed the patient's medical records. Lab Data Attestation: I reviewed the patient's lab results. Labs: Lab Results 12/02/21 12/02/21 12/02/21 Range/Units 00:50 00:50 00:50 WBC 16.65 H (4.50-11.00) K/uL RBC 4.37 (4.30-5.90) m/uL Hgb 13.1 L (13.5-17.5) gm/dL Hct 39.2 (37.0-53.0) % MCV 90 (80-100) fL MCH 30 (26-34) pg MCHC 33 (32-36) gm/dL RDW Coeff of Maximo 15.6 H (11.5-15.5) % Plt Count 587 H (140-440) K/uL Neut % (Auto) 65.6 (42.0-72.0) % Lymph % (Auto) 21.0 (20-44) % [place] % (Auto) 11.3 H (0.0-11.0) % Eos % (Auto) 1.3 (0.0-7.0) % Baso % (Auto) 0.4 (0.0-3.0) % Neut # (Auto) 10.90 H (1.7-7.0) K/uL Lymph # (Auto) 3.50 H (0.90-2.90) K/uL [place] # (Auto) 1.90 H (0.00-0.90) K/UL Eos # (Auto) 0.20 (0.00-0.50) K/uL Baso # (Auto) 0.10 (0.00-0.30) K/uL Abs Immat Gran (auto) 0.06 (0.00-0.30) K/uL INR 1.52 H (0.91-1.10) APTT 38 H (23-33) Seconds D-Dimer Quant (PE/DVT) 1.00 H (0.00-0.50) ug/ml Sodium 133 L (135-149) mmol/L Potassium 4.4 (3.6-5.1) mmol/L Chloride 92 L (96-114) mmol/L Carbon Dioxide 28 (20-32) mmol/L BUN 38 H (7-30) mg/dL Creatinine 1.8 H (0.5-1.5) mg/dL Estimated GFR 42 ml/min Glucose 122 H (60-115) mg/dL Venous Lactic Acid (Serial Order) Calcium 9.9 (8.4-10.6) mg/dL Magnesium 2.0 (1.5-2.6) mg/dL Total Bilirubin 0.9 (0.1-1.5) mg/dL AST 51 H (12-35) U/L ALT 27 (4-50) U/L Alkaline Phosphatase 89 (40-150) U/L Troponin I 0.21 H* (0.01-0.04) ng/mL C-Reactive Protein 2.0 H (0.5-1.0) mg/dL NT-Pro-B Natriuret Pep 2870 H (0-125) PG/mL Total Protein 7.4 (6.0-8.3) g/dL Albumin 4.5 (3.3-5.0) g/dL SARS-CoV-2 (PCR) (Negative) POC Troponin I (0.01-0.04) ng/ml 12/02/21 12/02/21 12/02/21 Range/Units 00:50 00:50 02:18 WBC (4.50-11.00) K/uL RBC (4.30-5.90) m/uL Hgb (13.5-17.5) gm/dL Hct (37.0-53.0) % MCV (80-100) fL MCH (26-34) pg MCHC (32-36) gm/dL RDW Coeff of Maximo (11.5-15.5) % Plt Count (140-440) K/uL Neut % (Auto) (42.0-72.0) % Lymph % (Auto) (20-44) % [place] % (Auto) (0.0-11.0) % Eos % (Auto) (0.0-7.0) % Baso % (Auto) (0.0-3.0) % Neut # (Auto) (1.7-7.0) K/uL Lymph # (Auto) (0.90-2.90) K/uL [place] # (Auto) (0.00-0.90) K/UL Eos # (Auto) (0.00-0.50) K/uL Baso # (Auto) (0.00-0.30) K/uL Abs Immat Gran (auto) (0.00-0.30) K/uL INR (0.91-1.10) APTT (23-33) Seconds D-Dimer Quant (PE/DVT) (0.00-0.50) ug/ml Sodium (135-149) mmol/L Potassium (3.6-5.1) mmol/L Chloride (96-114) mmol/L Carbon Dioxide (20-32) mmol/L BUN (7-30) mg/dL Creatinine (0.5-1.5) mg/dL Estimated GFR ml/min Glucose (60-115) mg/dL Venous Lactic Acid (Serial Order) Calcium (8.4-10.6) mg/dL Magnesium (1.5-2.6) mg/dL Total Bilirubin (0.1-1.5) mg/dL AST (12-35) U/L ALT (4-50) U/L Alkaline Phosphatase (40-150) U/L Troponin I (0.01-0.04) ng/mL C-Reactive Protein (0.5-1.0) mg/dL NT-Pro-B Natriuret Pep (0-125) PG/mL Total Protein (6.0-8.3) g/dL Albumin (3.3-5.0) g/dL SARS-CoV-2 (PCR) (Negative) POC Troponin I 0.22 H 0.23 H (0.01-0.04) ng/ml 12/02/21 Range/Units 02:31 WBC (4.50-11.00) K/uL RBC (4.30-5.90) m/uL Hgb (13.5-17.5) gm/dL Hct (37.0-53.0) % MCV (80-100) fL MCH (26-34) pg MCHC (32-36) gm/dL RDW Coeff of Maximo (11.5-15.5) % Plt Count (140-440) K/uL Neut % (Auto) (42.0-72.0) % Lymph % (Auto) (20-44) % [place] % (Auto) (0.0-11.0) % Eos % (Auto) (0.0-7.0) % Baso % (Auto) (0.0-3.0) % Neut # (Auto) (1.7-7.0) K/uL Lymph # (Auto) (0.90-2.90) K/uL [place] # (Auto) (0.00-0.90) K/UL Eos # (Auto) (0.00-0.50) K/uL Baso # (Auto) (0.00-0.30) K/uL Abs Immat Gran (auto) (0.00-0.30) K/uL INR (0.91-1.10) APTT (23-33) Seconds D-Dimer Quant (PE/DVT) (0.00-0.50) ug/ml Sodium (135-149) mmol/L Potassium (3.6-5.1) mmol/L Chloride (96-114) mmol/L Carbon Dioxide (20-32) mmol/L BUN (7-30) mg/dL Creatinine (0.5-1.5) mg/dL Estimated GFR ml/min Glucose (60-115) mg/dL Venous Lactic Acid (Serial Order) Calcium (8.4-10.6) mg/dL Magnesium (1.5-2.6) mg/dL Total Bilirubin (0.1-1.5) mg/dL AST (12-35) U/L ALT (4-50) U/L Alkaline Phosphatase (40-150) U/L Troponin I (0.01-0.04) ng/mL C-Reactive Protein (0.5-1.0) mg/dL NT-Pro-B Natriuret Pep (0-125) PG/mL Total Protein (6.0-8.3) g/dL Albumin (3.3-5.0) g/dL SARS-CoV-2 (PCR) Negative SARS-CoV-2 (Negative) POC Troponin I (0.01-0.04) ng/ml ECG Data Attestation: I personally reviewed and interpreted this ECG as follows: (Shows a sinus rhythm rather low amplitude rate of 79. First-degree AV block, looks unchanged from prior 11/18/2021) Discharge Plan Discharge Clinical Impression: Elevated troponin I level, Chest pain Patient Disposition: Home w/ Parent or Adult Condition: Improved Additional Instructions: To be clear, you have not been cleared from cardiac standpoint. You are still at risk for decompensation. I understand your desire to go home. I have recommended admission for further observation and formal cardiac echocardiogram. Please follow-up otherwise as planned tomorrow. Return for persistent and increasing shortness of breath, increasing chest pain, fever. Happy birthday! Prescriptions: No Action atorvastatin 20 mg tablet 20 mg PO DAILY multivitamin with iron Tablet 1 tab PO QDAY aspirin 81 mg tablet,delayed release (DR/EC) 81 mg PO DAILY albuterol sulfate 90 mcg/actuation HFA aerosol inhaler 1 - 2 puff INHALATION Q4H PRN bupropion HCl 300 mg tablet extended release 24 hr 300 mg PO DAILY ipratropium-albuterol 0.5 mg-3 mg(2.5 mg base)/3 mL solution for nebulization 3 ml INHALATION QID Entresto 24-26 mg tablet 1 tab PO BID Spiriva with HandiHaler 18 mcg capsule, w/inhalation device 1 cap INHALATION DAILY torsemide 20 mg tablet 20 mg PO BID thiamine HCl (vitamin B1) 100 mg tablet 100 mg PO DAILY amiodarone 200 mg tablet 400 mg PO DAILY Rx Instructions: 400 MG BID X 2 DAYS 400 MG DAILY X 7 DAYS 200 MG DAILY X 21 DAYS apixaban 5 mg tablet 5 mg PO BID losartan 25 mg tablet 12.5 mg PO DAILY spironolactone 25 mg tablet 25 mg PO DAILY trazodone 50 mg tablet 50 mg PO HS Follow Up/Referrals: Rosa Maria Jiménez PA-C [Referring] - Stand Alone Forms: [employer] Info Instructions
--- NOTE | 2021-12-02 01:36 | CRLHL7_ITS ---
For Patients: As a result of the Century Cures Act, medical imaging exams and procedure reports are released immediately into your electronic medical record. You may view this report before your referring provider. If you have questions, please contact your health care provider. HISTORY: Chest pain. Dyspnea. COMPARISON: Chest two views from 06/26/2021 FINDINGS: A portable erect AP view of the chest was obtained at 0211 hours. The lungs remain clear. No focal or diffuse infiltrates are present. The heart remains top normal in size. The mediastinum is normal in appearance. The osseous structures are normal in appearance for the patient`s age. IMPRESSION: Normal portable chest single view. Dictated by Kee Wesley MD @ 12/02/2021 2:24:08 AM (Electronically Signed)
[2021-12-02 01:51] LABS: Basophils Percent Auto 0.4 % (0.0-3.0); Eosinophils Percent Auto 1.3 % (0.0-7.0); Hematocrit 39.2 % (37.0-53.0); Hemoglobin* 13.1 gm/dL (13.5-17.5); Immature Granulocytes Abs Auto 0.06 K/uL (0.00-0.30); Mean Corpuscular HGB Conc 33 gm/dL (32-36); Mean Corpuscular Hemoglobin 30 pg (26-34); Mean Corpuscular Volume 90 fL (80-100); Monocytes Percent Auto 11.3 % (0.0-11.0); Neutrophils Percent Auto 65.6 % (42.0-72.0); Platelet Count* 587 K/uL (140-440); RDW Coefficient of Variation % 15.6 % (11.5-15.5); Red Blood Count 4.37 m/uL (4.30-5.90); White Blood Count* 16.65 K/uL (4.50-11.00)
[2021-12-02 01:57] LABS: Albumin* 4.5 g/dL (3.3-5.0); Chloride* 92 mmol/L (96-114); Potassium* 4.4 mmol/L (3.6-5.1); Sodium* 133 mmol/L (135-149)
[2021-12-02 02:00] LABS: Alanine Aminotransferase* 27 U/L (4-50); Alkaline Phosphatase* 89 U/L (40-150); Aspartate Amino Transferase* 51 U/L (12-35); Bilirubin Total* 0.9 mg/dL (0.1-1.5); Blood Urea Nitrogen* 38 mg/dL (7-30); Carbon Dioxide* 28 mmol/L (20-32); Creatinine* 1.8 mg/dL (0.5-1.5); Estimated Glomerular Filt Rate 42 ml/min; Glucose* 122 mg/dL (60-115); Total Protein* 7.4 g/dL (6.0-8.3)
[2021-12-02 02:01] LABS: Calcium* 9.9 mg/dL (8.4-10.6)
[2021-12-02 02:02] LABS: INR 1.52 (0.91-1.10); Prothrombin Time 18.7 Seconds
[2021-12-02 02:03] LABS: Partial Thromboplastin Time* 38 Seconds (23-33)
[2021-12-02 02:09] LABS: NT Pro B Type NatriureticPept* 2870 PG/mL (0-125)
[2021-12-02 02:24] LABS: Troponin I* 0.21 ng/mL (0.01-0.04)
[2021-12-02 02:26] LABS: Slide Review Reflex No
[2021-12-02 02:29] LABS: Lactate Sepsis w/Reflex* 1.8 mmol/L (0.5-1.9)
[2021-12-02 02:29] LABS: Troponin, Point-of-Care* 0.23 ng/ml (0.01-0.04)
[2021-12-02 02:32] LABS: Lactate Sepsis 2 Hour 1.3 mmol/L (0.5-1.9)
[2021-12-02 02:41] LABS: Troponin, Point-of-Care* 0.22 ng/ml (0.01-0.04)
[2021-12-02 03:39] LABS: SARS PCR* Negative SARS-CoV-2 (Negative)
== END 2021-12-02 05:34 | disposition home or self-care (01) ==
PROVIDERS: Emergency Provider Family Medicine
DX: R07.9 Chest pain, unspecified (principal); R79.89 Other specified abnormal findings of blood chemistry
CPT/HCPCS: 36415; 71045; 80053; 83735; 83880; 84484; 85025; 85379; 85610; 85730; 86140; 87040; 87635; 93005; 99284

== ENCOUNTER 2021-12-02 18:43 | Inpatient (IN) | payer BC, SELFPAY ==
[2021-12-02] VITALS (23 sets, daily range): BP systolic 80–112; BP diastolic 59–88; PULSE 77–86; RESP 20; TEMP 36.9; O2SAT 91–97
--- NOTE | 2021-12-02 18:58 | ED_ITS ---
HPI - Chest Pain General Time Seen by Provider: 18:58 Date Seen: 12/02/21 Chief Complaint: Chest Pain Stated Complaint: SEVERE CHEST PAINS Time Seen by Provider: 12/02/21 18:58 Source: patient, family, RN notes reviewed and old records reviewed Mode of arrival: ambulatory Limitations: no limitations History of Present Illness HPI narrative: Patient is a very pleasant 61-year-old gentleman with recent discharge from [facility] with new diagnosis of amyloidosis and possible multiple myeloma as well as chronic chest pain who comes to the [facility] for chest pain. Patient was seen last night. He had chest pain with elevated troponin 2.2 3 and an elevated white count. Plan was to transfer patient to [facility] but patient declined as today is his birthday and he wanted to go home. He states he had been doing okay until approximately 1400 hours with the had the return of anterior chest pain associated with shortness of breath. There was no association with nausea or vomiting. Patient is supposed to follow-up with oncology tomorrow in regards to his elevating white count. He denies a fever or chills. He has not had a cough. He denies dysuria/ hematuria. He denies lower extremity edema but notes he feels like he is filled with fluid as his abdomen is larger than normal. MD complaint: chest pain Pertinent past history: prior SD and other (Amyloidosis) Onset (ago): hour(s) Timing of current episode: constant Prior episodes: Yes Onset: during rest Pain location: substernal and left chest Quality: tightness and heaviness Relieving factors: nothing Associated symptoms: dyspnea Treatment prior to arrival: none and other (Currently on Eliquis) Risk Factors Coronary artery disease risk factors: smoking history and hyperlipidemia Related Data Home Medications Medication Instructions Recorded Confirmed aspirin 81 mg tablet,delayed 81 mg PO DAILY 10/31/21 11/14/21 release atorvastatin 20 mg tablet 20 mg PO DAILY 10/31/21 11/14/21 multivitamin with iron 1 tab PO QDAY 10/31/21 11/14/21 albuterol sulfate 90 mcg/actuation 1 - 2 puff inhalation Q4H PRN 11/14/21 11/14/21 aerosol inhaler bupropion HCl 300 mg 24 hr tablet, 300 mg PO DAILY 11/14/21 11/14/21 extended release ipratropium 0.5 mg-albuterol 3 mg 3 ml inhalation QID 11/14/21 11/14/21 (2.5 mg base)/3 mL nebulization soln metoprolol succinate 25 mg 12.5 mg PO HS 11/14/21 11/14/21 tablet,extended release 24 hr sacubitril 24 mg-valsartan 26 mg 1 tab PO BID 11/14/21 11/14/21 tablet (Entresto) thiamine HCl (vitamin B1) 100 mg 100 mg PO DAILY 11/14/21 11/14/21 tablet tiotropium bromide 18 mcg capsule 1 cap inhalation DAILY 11/14/21 11/14/21 with inhalation device (Spiriva with HandiHaler) torsemide 20 mg tablet 20 mg PO DAILY 11/14/21 11/14/21 Allergies Allergy/AdvReac Type Severity Reaction Status Date / Time hydrocodone Allergy Mild Nausea Verified 10/31/21 11:07 metoprolol Allergy Mild Nausea Verified 10/31/21 11:07 oxycodone Allergy Mild Nausea Verified 10/31/21 11:07 amlodipine Allergy Unknown Abdominal Verified 10/31/21 11:07 Cramping chlorthalidone Allergy Unknown Angioedema Verified 10/31/21 11:07 terazosin Allergy Unknown Dizziness Verified 10/31/21 11:07 Beta Adrenergic Blockers Allergy Mild Nausea Uncoded 10/31/21 11:07 Review of Systems Status of ROS Reports: 10 or more systems reviewed and unremarkable except as noted in History and below Const Denies: fever, chills or fatigue Eyes Denies: change in vision ENMT Denies: throat pain, neck pain or difficulty swallowing Cardio Reports: chest pain, edema (Abdomen), swelling of feet/ankles (Minimal) and shortness of breath with exertion Resp Reports: shortness of breath; Denies: cough GI Denies: abdominal pain, nausea, vomiting or difficulty swallowing Musculo Denies: neck pain Neuro Denies: headache Endo Denies: fatigue PFSH PFSH Medical History Exertional dyspnea Thoracic lymphadenopathy Surgical History Status post carpal tunnel release Status post right knee replacement Family History Uncle CHF (congestive heart failure) Diabetes Brother Alcoholism High blood pressure Father Esophageal cancer Social History Narrative: Formally was a smoker, 48 pack-year history and quit in June. Formally drank alcohol heavily and quit in June 2021 as well. Has increasingly become a cardiac cripple with very poor exercise tolerance and dyspnea with any activity. 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 present very loving and supportive Const Vital Signs, click to edit/add: Vital Signs - 24 hr 12/02/21 18:50 12/02/21 18:56 12/02/21 19:00 Temperature 98.4 F Pulse Rate 85 85 Pulse Rate [Pulse Oximeter] 85 Respiratory Rate 20 Blood Pressure Blood Pressure [Left Upper Arm] 95/71 Pulse Oximetry 96 97 95 Oxygen Delivery Method Room Air 12/02/21 19:09 12/02/21 19:06 12/02/21 19:32 Temperature Pulse Rate 86 82 Pulse Rate [Pulse Oximeter] Respiratory Rate Blood Pressure 112/88 85/65 L Blood Pressure [Left Upper Arm] Pulse Oximetry 96 94 91 Oxygen Delivery Method Room Air 12/02/21 19:33 12/02/21 19:54 12/02/21 20:02 Temperature Pulse Rate 81 80 81 Pulse Rate [Pulse Oximeter] Respiratory Rate Blood Pressure 83/61 L Blood Pressure [Left Upper Arm] Pulse Oximetry 93 92 93 Oxygen Delivery Method 12/02/21 20:03 12/02/21 20:13 12/02/21 20:14 Temperature Pulse Rate 81 83 82 Pulse Rate [Pulse Oximeter] Respiratory Rate Blood Pressure 80/59 L 100/63 Blood Pressure [Left Upper Arm] Pulse Oximetry 92 95 95 Oxygen Delivery Method 12/02/21 20:32 12/02/21 20:34 12/02/21 20:49 Temperature Pulse Rate 82 80 80 Pulse Rate [Pulse Oximeter] Respiratory Rate Blood Pressure 97/69 Blood Pressure [Left Upper Arm] Pulse Oximetry 93 94 94 Oxygen Delivery Method 12/02/21 21:31 12/02/21 21:32 12/02/21 22:02 Temperature Pulse Rate 81 80 80 Pulse Rate [Pulse Oximeter] Respiratory Rate Blood Pressure 99/73 96/73 Blood Pressure [Left Upper Arm] Pulse Oximetry 95 94 94 Oxygen Delivery Method 12/02/21 22:04 12/02/21 22:31 12/02/21 22:33 Temperature Pulse Rate 79 78 78 Pulse Rate [Pulse Oximeter] Respiratory Rate Blood Pressure 94/71 Blood Pressure [Left Upper Arm] Pulse Oximetry 94 94 94 Oxygen Delivery Method 12/02/21 23:02 12/02/21 23:04 12/03/21 00:01 Temperature Pulse Rate 78 77 78 Pulse Rate [Pulse Oximeter] Respiratory Rate Blood Pressure 103/66 Blood Pressure [Left Upper Arm] Pulse Oximetry 96 95 94 Oxygen Delivery Method 12/03/21 00:02 12/03/21 00:15 Temperature Pulse Rate 76 77 Pulse Rate [Pulse Oximeter] Respiratory Rate Blood Pressure 91/67 Blood Pressure [Left Upper Arm] Pulse Oximetry 93 94 Oxygen Delivery Method Documenting provider has reviewed patient's vital signs: yes Common normals: average body habitus, oriented x3 and no limitations General appearance: cooperative, well kempt and anxious HENME Common normals: head/scalp atraumatic Head and scalp: atraumatic Face and sinus: normal facial exam Mouth: oral and palatal mucosa normal Eye Common normals: PERRL General eye: normal appearance of both eyes Pupil: PERRL Neck & C-Spine Common normals: no lymphadenopathy and supple Other: Healing surgical wound at the base of the left neck. Scabbing without evidence of surrounding erythema or drainage. Resp Common normals: normal respiratory effort Effort & inspection: able to speak in complete sentences and other (Decreased breath sounds in the lung bases left greater than right.) Cardio Common normals: regular rate and regular rhythm Rate: regular rate Rhythm: regular rhythm GI Common normals: soft to palpation and non-tender Inspection: abdominal distension (But soft without discomfort.) Palpation: soft Other: No pulsating mass. Extremity Common normals: full ROM General: edema (Less than 1+ at ankles.) Neuro Common normals: oriented x3 Speech: speech normal Psych Common normals: mental status grossly normal Appearance: well kempt Skin Common normals: no rashes or lesions noted General skin exam: no rashes or lesions noted Course Course Hospital Course: At this time patient presents in the setting of past history of congestive heart failure with reduced ejection fraction as well as chronic chest pain, recent cardiac biopsy, recent diagnosis amyloidosis and potential diagnosis of multiple myeloma. Patient had IV established and oxygen place. EKG, troponin, CBC, comprehensive panel, lactate, CRP and urinalysis are all ordered at this time. Will also order morphine 4 mg and Zofran 4 mg. Also will get D-dimer and proBNP as well as COVID swab. 1:26 a.m. I spoke to [facility] hospitalist, patient's CT came back showing no evidence of dissection, per the discussion with from [facility] patient will be admitted to this hospital, on telemetry, use morphine for the discomfort, and have an echocardiogram ordered for the morning. Inpatient hospitalist is to call [facility] for further helping care and managing this patient. Cardiology does not feel that his troponins are elevated secondary to ischemic issues. With no evidence of dissection on CT, they do not feel is was a complication of the catheterization. Reevaluation(s) Reevaluation #1: Patient noted pain initially of 10/10 now for 4 to 5/10 with morphine. Patient is receptive to admission. Vital Signs Vital signs: Initial Vital Signs Temperature 98.4 F 12/02/21 18:50 Temperature Source Temporal Artery Scan 12/02/21 18:50 Pulse Rate 85 12/02/21 18:50 Respiratory Rate 20 12/02/21 18:50 Blood Pressure 95/71 12/02/21 18:50 Blood Pressure Mean 79 12/02/21 18:50 Blood Pressure Position Sitting 12/02/21 18:50 Pulse Oximetry 96 12/02/21 18:50 Oxygen Delivery Method 12/02/21 18:50 Vital Signs Temperature 98.4 F 12/02/21 18:50 Pulse Rate 85 12/02/21 18:50 Respiratory Rate 20 12/02/21 18:50 Blood Pressure 95/71 12/02/21 18:50 Pulse Oximetry 96 12/02/21 18:50 Oxygen Delivery Method 12/02/21 18:50 Temperature 98.4 F 12/02/21 18:50 Pulse Rate 77 12/03/21 00:15 Respiratory Rate 20 12/02/21 18:50 Blood Pressure 91/67 12/03/21 00:02 Pulse Oximetry 94 12/03/21 00:15 Oxygen Delivery Method 12/02/21 19:06 MDM - Chest Pain MDM Narrative Medical decision making narrative: 1. Chest pain-patient does have elevated troponins but these are consistent with previous values. EKGs are unchanged. Have spoken with [facility] manager basketball who does suggest noncontrast CT to evaluate aortic root which is known to be dilated at 4.9 cm. Chest abdomen pelvis CT noncontrast currently pending. If this is reassuring patient will be admitted to the hospital with echocardiogram scheduled for tomorrow. A 3rd troponin is currently pending. Pain control has been with morphine 4 mg. Patient was supposed to see heart failure specialist Dr. Ramos at [facility] tomorrow morning at 1000 hours. He will need to reschedule this appointment per the learning and development consultant. Patient noted to be on Eliquis with no skipped doses. Chest pain improved with oxygen as well. No evidence of pneumonia on chest x-ray. 2. Leukocytosis-according to problem list, patient has had rising white counts suspicious for multiple myeloma. I do not have these notes from [facility] but patient does have follow-up appoint with Oncology tomorrow at 1730 hours. No fever at this time. 3. Amyloidosis-patient is status post cardiac biopsy. He is telling me that his amyloid is in his bone marrow only. 4. Disposition-pending reassuring CT, Cardiology felt patient could remain at [facility]. Initially, we had planned on transfer but patient was on wait list for quite a few hours with no acceptance. Patient is informed of our plan to stay here if appropriate. This case will be signed out to my partner Dr. Malcolm. Medical Records Data Attestation: I reviewed the patient's medical records. Lab Data Attestation: I reviewed the patient's lab results. Labs: Lab Results 12/02/21 12/02/21 12/02/21 Range/Units 19:10 19:10 19:10 WBC 22.67 H (4.50-11.00) K/uL RBC 4.30 (4.30-5.90) m/uL Hgb 12.9 L (13.5-17.5) gm/dL Hct 37.6 (37.0-53.0) % MCV 87 (80-100) fL MCH 30 (26-34) pg MCHC 34 (32-36) gm/dL RDW Coeff of Maximo 15.3 (11.5-15.5) % Plt Count 559 H (140-440) K/uL Neut % (Auto) 80.3 H (42.0-72.0) % Lymph % (Auto) 8.5 L (20-44) % [facility] % (Auto) 10.3 (0.0-11.0) % Eos % (Auto) 0.4 (0.0-7.0) % Baso % (Auto) 0.2 (0.0-3.0) % Neut # (Auto) 18.20 H (1.7-7.0) K/uL Lymph # (Auto) 1.90 (0.90-2.90) K/uL [facility] # (Auto) 2.30 H (0.00-0.90) K/UL Eos # (Auto) 0.10 (0.00-0.50) K/uL Baso # (Auto) 0.00 (0.00-0.30) K/uL Abs Immat Gran (auto) 0.06 (0.00-0.30) K/uL D-Dimer Quant (PE/DVT) (0.00-0.50) ug/ml Sodium 128 L (135-149) mmol/L Potassium 4.8 (3.6-5.1) mmol/L Chloride 92 L (96-114) mmol/L Carbon Dioxide 24 (20-32) mmol/L BUN 42 H (7-30) mg/dL Creatinine 1.9 H (0.5-1.5) mg/dL Estimated GFR 39 ml/min Glucose 123 H (60-115) mg/dL Lactate 1.1 (0.5-1.9) mmol/L Calcium 9.3 (8.4-10.6) mg/dL Magnesium 1.8 (1.5-2.6) mg/dL Total Bilirubin 1.1 (0.1-1.5) mg/dL AST 28 (12-35) U/L ALT 26 (4-50) U/L Alkaline Phosphatase 91 (40-150) U/L Troponin I 0.19 H* (0.01-0.04) ng/mL C-Reactive Protein 4.4 H (0.5-1.0) mg/dL NT-Pro-B Natriuret Pep 3230 H (0-125) PG/mL Total Protein 7.2 (6.0-8.3) g/dL Albumin 4.4 (3.3-5.0) g/dL SARS-CoV-2 (PCR) (Negative) Influenza Type A (PCR) (Negative) Influenza Type B (PCR) (Negative) POC Troponin I (0.01-0.04) ng/ml 12/02/21 12/02/21 12/02/21 Range/Units 19:10 19:10 19:28 WBC (4.50-11.00) K/uL RBC (4.30-5.90) m/uL Hgb (13.5-17.5) gm/dL Hct (37.0-53.0) % MCV (80-100) fL MCH (26-34) pg MCHC (32-36) gm/dL RDW Coeff of Maximo (11.5-15.5) % Plt Count (140-440) K/uL Neut % (Auto) (42.0-72.0) % Lymph % (Auto) (20-44) % [facility] % (Auto) (0.0-11.0) % Eos % (Auto) (0.0-7.0) % Baso % (Auto) (0.0-3.0) % Neut # (Auto) (1.7-7.0) K/uL Lymph # (Auto) (0.90-2.90) K/uL [facility] # (Auto) (0.00-0.90) K/UL Eos # (Auto) (0.00-0.50) K/uL Baso # (Auto) (0.00-0.30) K/uL Abs Immat Gran (auto) (0.00-0.30) K/uL D-Dimer Quant (PE/DVT) 1.20 H (0.00-0.50) ug/ml Sodium (135-149) mmol/L Potassium (3.6-5.1) mmol/L Chloride (96-114) mmol/L Carbon Dioxide (20-32) mmol/L BUN (7-30) mg/dL Creatinine (0.5-1.5) mg/dL Estimated GFR ml/min Glucose (60-115) mg/dL Lactate (0.5-1.9) mmol/L Calcium (8.4-10.6) mg/dL Magnesium (1.5-2.6) mg/dL Total Bilirubin (0.1-1.5) mg/dL AST (12-35) U/L ALT (4-50) U/L Alkaline Phosphatase (40-150) U/L Troponin I (0.01-0.04) ng/mL C-Reactive Protein (0.5-1.0) mg/dL NT-Pro-B Natriuret Pep (0-125) PG/mL Total Protein (6.0-8.3) g/dL Albumin (3.3-5.0) g/dL SARS-CoV-2 (PCR) Negative SARS-CoV-2 (Negative) Influenza Type A (PCR) (Negative) Influenza Type B (PCR) (Negative) POC Troponin I 0.22 H (0.01-0.04) ng/ml 12/02/21 12/02/21 12/02/21 Range/Units 20:30 21:19 23:49 WBC (4.50-11.00) K/uL RBC (4.30-5.90) m/uL Hgb (13.5-17.5) gm/dL Hct (37.0-53.0) % MCV (80-100) fL MCH (26-34) pg MCHC (32-36) gm/dL RDW Coeff of Maximo (11.5-15.5) % Plt Count (140-440) K/uL Neut % (Auto) (42.0-72.0) % Lymph % (Auto) (20-44) % [facility] % (Auto) (0.0-11.0) % Eos % (Auto) (0.0-7.0) % Baso % (Auto) (0.0-3.0) % Neut # (Auto) (1.7-7.0) K/uL Lymph # (Auto) (0.90-2.90) K/uL [facility] # (Auto) (0.00-0.90) K/UL Eos # (Auto) (0.00-0.50) K/uL Baso # (Auto) (0.00-0.30) K/uL Abs Immat Gran (auto) (0.00-0.30) K/uL D-Dimer Quant (PE/DVT) (0.00-0.50) ug/ml Sodium (135-149) mmol/L Potassium (3.6-5.1) mmol/L Chloride (96-114) mmol/L Carbon Dioxide (20-32) mmol/L BUN (7-30) mg/dL Creatinine (0.5-1.5) mg/dL Estimated GFR ml/min Glucose (60-115) mg/dL Lactate (0.5-1.9) mmol/L Calcium (8.4-10.6) mg/dL Magnesium (1.5-2.6) mg/dL Total Bilirubin (0.1-1.5) mg/dL AST (12-35) U/L ALT (4-50) U/L Alkaline Phosphatase (40-150) U/L Troponin I (0.01-0.04) ng/mL C-Reactive Protein (0.5-1.0) mg/dL NT-Pro-B Natriuret Pep (0-125) PG/mL Total Protein (6.0-8.3) g/dL Albumin (3.3-5.0) g/dL SARS-CoV-2 (PCR) Negative SARS-CoV-2 (Negative) Influenza Type A (PCR) Negative PCR FLU A (Negative) Influenza Type B (PCR) Negative PCR FLU B (Negative) POC Troponin I 0.20 H 0.24 H (0.01-0.04) ng/ml Discharge Plan Discharge Clinical Impression: Elevated troponin, Chest pain Patient Disposition: Admitted As Inpatient Prescriptions: No Action atorvastatin 20 mg tablet 20 mg PO DAILY multivitamin with iron Tablet 1 tab PO QDAY aspirin 81 mg tablet,delayed release (DR/EC) 81 mg PO DAILY albuterol sulfate 90 mcg/actuation HFA aerosol inhaler 1 - 2 puff INHALATION Q4H PRN bupropion HCl 300 mg tablet extended release 24 hr 300 mg PO DAILY ipratropium-albuterol 0.5 mg-3 mg(2.5 mg base)/3 mL solution for nebulization 3 ml INHALATION QID metoprolol succinate 25 mg tablet extended release 24 hr 12.5 mg PO HS Entresto 24-26 mg tablet 1 tab PO BID Spiriva with HandiHaler 18 mcg capsule, w/inhalation device 1 cap INHALATION DAILY torsemide 20 mg tablet 20 mg PO DAILY thiamine HCl (vitamin B1) 100 mg tablet 100 mg PO DAILY Follow Up/Referrals: Provider,Not a Local [Referring] -
--- NOTE | 2021-12-02 19:06 | CRLHL7_ITS ---
For Patients: As a result of the Century Cures Act, medical imaging exams and procedure reports are released immediately into your electronic medical record. You may view this report before your referring provider. If you have questions, please contact your health care provider. INDICATION: Chest pain TECHNIQUE: Single view chest. FINDINGS: Normal cardiac mediastinal silhouette thoracic aorta appears tortuous/ectatic. Lungs are clear. Mild basilar atelectasis. Dictated by Brittany Piedra MD @ 12/02/2021 8:09:12 PM (Electronically Signed)
[2021-12-02] MEDS: ONDANSETRON 2 MG/ML inj 4 MG IVP (19:15)
[2021-12-02] MEDS: MORPHINE 4 MG/ML INJ IVP ×3 (19:16→23:54)
[2021-12-02 19:21] LABS: Lactate* 1.1 mmol/L (0.5-1.9)
[2021-12-02 19:23] LABS: Basophils Percent Auto 0.2 % (0.0-3.0); Eosinophils Percent Auto 0.4 % (0.0-7.0); Hematocrit 37.6 % (37.0-53.0); Hemoglobin* 12.9 gm/dL (13.5-17.5); Immature Granulocytes Abs Auto 0.06 K/uL (0.00-0.30); Lymphocytes Percent Auto 8.5 % (20-44); Mean Corpuscular HGB Conc 34 gm/dL (32-36); Mean Corpuscular Hemoglobin 30 pg (26-34); Mean Corpuscular Volume 87 fL (80-100); Monocytes Percent Auto 10.3 % (0.0-11.0); Neutrophils Percent Auto 80.3 % (42.0-72.0); Platelet Count* 559 K/uL (140-440); RDW Coefficient of Variation % 15.3 % (11.5-15.5); White Blood Count* 22.67 K/uL (4.50-11.00)
[2021-12-02 19:28] LABS: Slide Review Reflex No
[2021-12-02 19:29] LABS: Troponin, Point-of-Care* 0.22 ng/ml (0.01-0.04)
[2021-12-02 19:50] LABS: Albumin* 4.4 g/dL (3.3-5.0); Chloride* 92 mmol/L (96-114); Sodium* 128 mmol/L (135-149)
[2021-12-02 19:51] LABS: Potassium* 4.8 mmol/L (3.6-5.1)
[2021-12-02 19:52] LABS: Creatinine* 1.9 mg/dL (0.5-1.5); Estimated Glomerular Filt Rate 39 ml/min
[2021-12-02 19:53] LABS: Alanine Aminotransferase* 26 U/L (4-50); Alkaline Phosphatase* 91 U/L (40-150); Aspartate Amino Transferase* 28 U/L (12-35); Bilirubin Total* 1.1 mg/dL (0.1-1.5); Blood Urea Nitrogen* 42 mg/dL (7-30); Carbon Dioxide* 24 mmol/L (20-32); Glucose* 123 mg/dL (60-115); Total Protein* 7.2 g/dL (6.0-8.3)
[2021-12-02 19:54] LABS: Calcium* 9.3 mg/dL (8.4-10.6); Magnesium* 1.8 mg/dL (1.5-2.6)
[2021-12-02 19:56] LABS: C Reactive Protein* 4.4 mg/dL (0.5-1.0)
[2021-12-02 20:06] LABS: Troponin I* 0.19 ng/mL (0.01-0.04)
[2021-12-02 20:30] LABS: SARS PCR* Negative SARS-CoV-2 (Negative)
[2021-12-02 21:12] LABS: NT Pro B Type NatriureticPept* 3230 PG/mL (0-125)
[2021-12-02 21:32] LABS: PCR FLU A Negative PCR FLU A (Negative); PCR FLU B Negative PCR FLU B (Negative)
[2021-12-02 21:44] LABS: SARS PCR* Negative SARS-CoV-2 (Negative)
--- NOTE | 2021-12-02 23:17 | CRLHL7_ITS ---
For Patients: As a result of the Century Cures Act, medical imaging exams and procedure reports are released immediately into your electronic medical record. You may view this report before your referring provider. If you have questions, please contact your health care provider. INDICATION: Chest pain. Abdominal pain. TECHNIQUE: CT chest, abdomen, and pelvis without contrast. COMPARISON: CT chest 11/14/2021. FINDINGS: CHEST: Lungs and pleura: Small right pleural effusion. Adjacent passive atelectasis. Few linear parenchymal bands, likely representing subsegmental atelectasis. Mild emphysema. Cardiovascular structures: Heart size is normal. Thoracic aorta and main pulmonary artery are normal in caliber. Small pericardial effusion. Mediastinum and olinda: Stable prominent mediastinal lymph nodes. Chest wall and axilla: No mass or adenopathy. Bones: No suspicious bone lesions. Unremarkable for age. ABDOMEN AND PELVIS: Liver: Unremarkable. Gallbladder and bile ducts: Dependent hyperdensity within the gallbladder lumen, representing layering sludge and/or stones. No biliary ductal dilation. Spleen: Unremarkable. Adrenal glands: Unremarkable. Pancreas: Mildly atrophic. Kidneys: Unremarkable. GI tract: Normal in caliber. Diverticulosis without evidence of diverticulitis. Minimal stranding surrounds left abdominal small bowel loops. Lymph nodes: Unremarkable. Vascular structures: Scattered atherosclerotic calcifications. Miscellaneous: Small fat containing right inguinal hernia. No free air or significant free fluid. Pelvic organs: Unremarkable. Bones: Lumbar spine degenerative changes with grade 1 anterolisthesis L4 on L5. IMPRESSION: 1. Minimal stranding surrounds left abdominal small bowel loops, nonspecific may reflect enteritis. 2. Small right pleural effusion. 3. Small pericardial effusion. 4. Cholelithiasis. 5. Diverticulosis. Please note that all CT scans at this facility use dose modulation, iterative reconstruction, and/or weight-based dosing when appropriate to reduce radiation dose to as low as reasonably achievable. Dictated by Jean Paul Griffin MD @ 12/03/2021 12:56:21 AM (Electronically Signed)
[2021-12-03] VITALS (25 sets, daily range): BP systolic 86–111; BP diastolic 56–87; PULSE 76–100; RESP 18–28; TEMP 36.6–37.2; O2SAT 93–96
[2021-12-03 00:04] LABS: Troponin, Point-of-Care* 0.24 ng/ml (0.01-0.04)
--- NOTE | 2021-12-03 01:28 | W.PC.EDHO ---
Primary Language: Preferred Language: Orientation Status: [x] Alert & Oriented [] Slight Confusion [] Known Dx Dementia Transfers By: [x] Assist of 1 [] Assist of 2 [] Lift Active Medications Generic Name Dose Route Start Last Admin Trade Name Freq PRN Reason Stop Dose Admin Morphine Sulfate 4 mg 12/02/21 23:38 12/02/21 23:54 Morphine 4 Mg/Ml Inj IVP 4 mg Q4H PRN Administration Discontinued Medications Generic Name Dose Route Start Last Admin Trade Name Freq PRN Reason Stop Dose Admin Morphine Sulfate 4 mg 12/02/21 19:06 12/02/21 19:16 Morphine 4 Mg/Ml Inj IVP 12/02/21 19:07 4 mg ONCE ONE Administration Morphine Sulfate 4 mg 12/02/21 20:40 12/02/21 21:00 Morphine 4 Mg/Ml Inj IVP 12/02/21 20:41 4 mg ONCE ONE Administration Ondansetron HCl 4 mg 12/02/21 19:06 12/02/21 19:15 Ondansetron 2 Mg/Ml Inj IVP 12/02/21 19:07 4 mg ONCE ONE Administration Description of Symptoms ED Triage Present Problem Patient seen yesterday for chest pain, declined Description recommended admission because today is his birthday. Today chest pain worsening. Shortness of breath, nausea. Has amyloidosis, follow up with cardiology/PET scan 12/03 ED Triage Date of Onset of 12/01/21 Symptoms Pain Pain Description [Medial Chest Sharp ] Pain Intensity [Medial Chest] 10 Pain Intensity 8 Pain Intensity 8 Pain Intensity 6 Pain Intensity 8 Pain Intensity 9 Pain Intensity 6 Pain Intensity 6 Pain Intensity 6 Pain Intensity 6 Pain Intensity 10 Pain Intensity 10 Pain Scale Used [Medial Chest] Numeric (1 - 10) Pain Scale Used Numeric (1 - 10) Pain Scale Used Numeric (1 - 10) Pain Scale Used Numeric (1 - 10) Pain Scale Used allowed to sleep Pain Scale Used Numeric (1 - 10) Pain Scale Used Numeric (1 - 10) Pain Scale Used Numeric (1 - 10) Pain Scale Used Numeric (1 - 10) Pain Scale Used Numeric (1 - 10) Pain Scale Used Numeric (1 - 10) Pain Scale Used Numeric (1 - 10) Pain Scale Used Numeric (1 - 10) IV Insertion/Site Date of IV Line Insertion [ 12/02/21 Left Wrist] Oxygen Administration Pulse Oximetry 94 Pulse Oximetry 93 Pulse Oximetry 94 Pulse Oximetry 95 Pulse Oximetry 96 Pulse Oximetry 94 Pulse Oximetry 94 Pulse Oximetry 94 Pulse Oximetry 94 Pulse Oximetry 94 Pulse Oximetry 95 Pulse Oximetry 94 Pulse Oximetry 94 Pulse Oximetry 93 Pulse Oximetry 95 Pulse Oximetry 95 Pulse Oximetry 92 Pulse Oximetry 93 Pulse Oximetry 92 Pulse Oximetry 93 Pulse Oximetry 91 Pulse Oximetry 96 Pulse Oximetry 94 Pulse Oximetry 95 Pulse Oximetry 97 Pulse Oximetry 96 Oxygen Delivery Method Room Air Oxygen Delivery Method Room Air Cardiac Monitoring EKG Method 12 Lead EKG Method 12 Lead EKG Method 12 Lead
--- NOTE | 2021-12-03 03:00 | P.IMCN_ITS ---
Date of Consult Consult date: 12/03/21 Primary Care Provider: Dorinda Watt DO Consult Narrative Narrative: Prateek Lyons Hospitalist ADMISSION SUPPORT NOTE eHospitalist was contacted by Dr. Wright with request of admission support. Chief complaint: Chest pain HPI: The patient has an extensive history with recent hospitalization at 11/14 when he was admitted with chest pain and shortness of breath during that hospitalization he had a stroke and was transferred to an outlying facility. There he underwent further work-up which included cardiac biopsy revealing that the patient had cardiac amyloid. There also per patient's report was findings of lesions in his bones and he underwent bone biopsy. There is concern that he could potentially have multiple myeloma. He comes at this time because today his chest pain got significantly worse worse than during his last hospitalization. He reports that the chest pain is on the right side of his chest and moves essentially, stabbing in quality, feels like it moves his right shoulder. ED provider discussed the case extensively with cardiology given his elevated troponin who felt that the patient's chest pain was not ischemic in nature however was related to amyloid. The patient reports that he was told that his chest pain would occur because of amyloid as well. He has chronic shortness of breath, orthopnea with pain worsening when he lies down. He was discharged on oxygen during his last hospitalization. Review of systems other mention above is negative Home Medications: Reviewed see EMR for details Pertinent Medical History: CHF, cardiac emboli, NSTEMI, dyslipidemia, COPD, cardiac biopsy, bone marrow biopsy, cardiac catheterization, neck surgery, right TKA Pertinent Social History: , quit smoking in June, denies drugs of abuse, no recent alcohol use Review of Systems Status of ROS: Reports: 10 or more systems reviewed and unremarkable except as noted in History and below [facility] Medical History Exertional dyspnea Thoracic lymphadenopathy Surgical History Status post carpal tunnel release Status post right knee replacement Family History Uncle CHF (congestive heart failure) Diabetes Brother Alcoholism High blood pressure Father Esophageal cancer Social History Narrative: Formally was a smoker, 48 pack-year history and quit in June. Formally drank alcohol heavily and quit in June 2021 as well. Has increasingly become a cardiac cripple with very poor exercise tolerance and dyspnea with any activity. Highest level of school completed/degree received: decline to answer Smoking Status: Never smoker Do you use any of these nicotine containing products: None Second hand tobacco smoke exposure: No How often do you have a drink containing alcohol: never AUDIT-C Alcohol total score: 0 Non-prescribed substance use: denies use Caffeine: No service: No Meds Home Medications and Allergies Home Medications Medication Instructions Recorded Confirmed Type aspirin 81 mg tablet,delayed 81 mg PO DAILY 10/31/21 11/14/21 History release atorvastatin 20 mg tablet 20 mg PO DAILY 10/31/21 11/14/21 History multivitamin with iron 1 tab PO QDAY 10/31/21 11/14/21 History albuterol sulfate 90 mcg/actuation 1 - 2 puff inhalation Q4H PRN 11/14/21 11/14/21 History aerosol inhaler bupropion HCl 300 mg 24 hr tablet, 300 mg PO DAILY 11/14/21 11/14/21 History extended release ipratropium 0.5 mg-albuterol 3 mg 3 ml inhalation QID 11/14/21 11/14/21 History (2.5 mg base)/3 mL nebulization soln metoprolol succinate 25 mg 12.5 mg PO HS 11/14/21 11/14/21 History tablet,extended release 24 hr sacubitril 24 mg-valsartan 26 mg 1 tab PO BID 11/14/21 11/14/21 History tablet (Entresto) thiamine HCl (vitamin B1) 100 mg 100 mg PO DAILY 11/14/21 11/14/21 History tablet tiotropium bromide 18 mcg capsule 1 cap inhalation DAILY 11/14/21 11/14/21 History with inhalation device (Spiriva with HandiHaler) torsemide 20 mg tablet 20 mg PO DAILY 11/14/21 11/14/21 History Allergies Allergy/AdvReac Type Severity Reaction Status Date / Time hydrocodone Allergy Mild Nausea Verified 10/31/21 11:07 metoprolol Allergy Mild Nausea Verified 10/31/21 11:07 oxycodone Allergy Mild Nausea Verified 10/31/21 11:07 amlodipine Allergy Unknown Abdominal Verified 10/31/21 11:07 Cramping chlorthalidone Allergy Unknown Angioedema Verified 10/31/21 11:07 terazosin Allergy Unknown Dizziness Verified 10/31/21 11:07 Beta Adrenergic Blockers Allergy Mild Nausea Uncoded 10/31/21 11:07 Exam Narrative: Exam Narrative: Prateek Lyons Hospitalist Exam (performed via interactive video with assistance of bedside nurse): General: Alert but had periods of brief drowsiness on and off, cooperative, no acute distress, obese HEENT: Pupils reported ERRL, oral mucosa pink and moist without erythema Lungs: Clear to auscultation bilaterally except bibasal crackles CV: Regular rate and rhythm without loud murmur rub or gallop Ext: No pitting edema noted Skin: No rashes, bruises or lesions appreciated on gross visualization of exposed skin Neuro: Alert but had periods of brief drowsiness on and off, oriented x 3. CN III -VII, XI, XII grossly intact, moves all extremities without any significant focal deficit appreciated Const: Vital Signs, click to edit/add: Vital Signs - 24 hr 12/02/21 18:50 12/02/21 18:56 12/02/21 19:00 Temperature 98.4 F Pulse Rate 85 85 Pulse Rate [Pulse Oximeter] 85 Respiratory Rate 20 Blood Pressure Blood Pressure [Le ft Arm] Blood Pressure [Le ft Upper Arm] 95/71 Pulse Oximetry 96 97 95 Oxygen Delivery Me thod Room Air Oxygen Flow Rate 12/02/21 19:09 12/02/21 19:06 12/02/21 19:32 Temperature Pulse Rate 86 82 Pulse Rate [Pulse Oximeter] Respiratory Rate Blood Pressure 112/88 85/65 L Blood Pressure [Le ft Arm] Blood Pressure [Le ft Upper Arm] Pulse Oximetry 96 94 91 Oxygen Delivery Me thod Room Air Oxygen Flow Rate 12/02/21 19:33 12/02/21 19:54 12/02/21 20:02 Temperature Pulse Rate 81 80 81 Pulse Rate [Pulse Oximeter] Respiratory Rate Blood Pressure 83/61 L Blood Pressure [Le ft Arm] Blood Pressure [Le ft Upper Arm] Pulse Oximetry 93 92 93 Oxygen Delivery Me thod Oxygen Flow Rate 12/02/21 20:03 12/02/21 20:13 12/02/21 20:14 Temperature Pulse Rate 81 83 82 Pulse Rate [Pulse Oximeter] Respiratory Rate Blood Pressure 80/59 L 100/63 Blood Pressure [Le ft Arm] Blood Pressure [Le ft Upper Arm] Pulse Oximetry 92 95 95 Oxygen Delivery Me thod Oxygen Flow Rate 12/02/21 20:32 12/02/21 20:34 12/02/21 20:49 Temperature Pulse Rate 82 80 80 Pulse Rate [Pulse Oximeter] Respiratory Rate Blood Pressure 97/69 Blood Pressure [Le ft Arm] Blood Pressure [Le ft Upper Arm] Pulse Oximetry 93 94 94 Oxygen Delivery Me thod Oxygen Flow Rate 12/02/21 21:31 12/02/21 21:32 12/02/21 22:02 Temperature Pulse Rate 81 80 80 Pulse Rate [Pulse Oximeter] Respiratory Rate Blood Pressure 99/73 96/73 Blood Pressure [Le ft Arm] Blood Pressure [Le ft Upper Arm] Pulse Oximetry 95 94 94 Oxygen Delivery Me thod Oxygen Flow Rate 12/02/21 22:04 12/02/21 22:31 12/02/21 22:33 Temperature Pulse Rate 79 78 78 Pulse Rate [Pulse Oximeter] Respiratory Rate Blood Pressure 94/71 Blood Pressure [Le ft Arm] Blood Pressure [Le ft Upper Arm] Pulse Oximetry 94 94 94 Oxygen Delivery Me thod Oxygen Flow Rate 12/02/21 23:02 12/02/21 23:04 12/03/21 00:01 Temperature Pulse Rate 78 77 78 Pulse Rate [Pulse Oximeter] Respiratory Rate Blood Pressure 103/66 Blood Pressure [Le ft Arm] Blood Pressure [Le ft Upper Arm] Pulse Oximetry 96 95 94 Oxygen Delivery Me thod Oxygen Flow Rate 12/03/21 00:02 12/03/21 00:15 12/03/21 02:00 Temperature Pulse Rate 76 77 Pulse Rate [Pulse Oximeter] Respiratory Rate 24 Blood Pressure 91/67 Blood Pressure [Le ft Arm] 97/64 Blood Pressure [Le ft Upper Arm] Pulse Oximetry 93 94 95 Oxygen Delivery Me thod Nasal Cannula Oxygen Flow Rate 2 12/03/21 02:32 12/03/21 01:26 12/03/21 00:32 Temperature 98.4 F Pulse Rate 77 Pulse Rate [Pulse Oximeter] 79 Respiratory Rate 24 24 Blood Pressure 96/68 Blood Pressure [Le ft Arm] Blood Pressure [Le ft Upper Arm] 95/71 Pulse Oximetry 96 96 94 Oxygen Delivery Me thod Nasal Cannula Nasal Cannula Oxygen Flow Rate 2 2 12/03/21 01:02 12/03/21 01:32 12/03/21 00:00 Temperature Pulse Rate 77 78 Pulse Rate [Pulse Oximeter] Respiratory Rate Blood Pressure 96/70 101/74 Blood Pressure [Le ft Arm] Blood Pressure [Le ft Upper Arm] Pulse Oximetry 94 94 94 Oxygen Delivery Me thod Nasal Cannula Oxygen Flow Rate 2 12/03/21 02:54 Temperature 98.4 F Pulse Rate Pulse Rate [Pulse Oximeter] 79 Respiratory Rate 24 Blood Pressure Blood Pressure [Le ft Arm] Blood Pressure [Le ft Upper Arm] 95/71 Pulse Oximetry Oxygen Delivery Me thod Oxygen Flow Rate Labs Labs: Short CBC 12/02/21 Range/Units 19:10 WBC 22.67 H (4.50-11.00) K/uL Hgb 12.9 L (13.5-17.5) gm/dL Hct 37.6 (37.0-53.0) % Plt Count 559 H (140-440) K/uL BMP 12/02/21 19:10 Sodium 128 L Potassium 4.8 Chloride 92 L Carbon Dioxide 24 BUN 42 H Creatinine 1.9 H Glucose 123 H Calcium 9.3 Cardiac Enzymes 12/02/21 Range/Units 19:10 Troponin I 0.19 H* (0.01-0.04) ng/mL Liver Function 12/02/21 Range/Units 19:10 Total Bilirubin 1.1 (0.1-1.5) mg/dL AST 28 (12-35) U/L ALT 26 (4-50) U/L Alkaline Phosphatase 91 (40-150) U/L Albumin 4.4 (3.3-5.0) g/dL Assessment and Plan Assessment and plan (1) Chest pain: Status: Acute Plan Recent lab/CT scan of abdomen and pelvis: Reviewed see MAR for details EKG: Per my interpretation showed showed sinus rhythm, low voltage Assessment and Plan: 1. Chest pain-pain control with morphine and narcotics. Per cardiology likely related to amyloid disease. Continue pain control. Trend troponin. 2. CHF-Per patient's report ejection fraction is 20%. Fluid restrict 1.5 L. Chronic but stable 3. COPD-stable continue inhalers 4. Dyslipidemia-stable on statin 5. Depression-stable on antidepressants 6. Leucocytosis - worsening. Check U/A. Empiric Zosyn 7. Renal insufficiency - monitor. acute 8. DVT prophylaxis-fully anticoagulated 9. CODE STATUS full code discussed with patient Chart review was performed as well as evaluation of the patient via video. Thank you for involving ehospitalist. Please contact [phone] if further assistance is needed.
[2021-12-03] MEDS: PIPERACILLIN/TAZOBACTAM 3.375 GM in 0.9 % SODIUM CHLORIDE Mini-bag 100 ML IVPB ×4 (03:36→21:11)
[2021-12-03] MEDS: 0.9 % SODIUM CHLORIDE 250 ml IV (03:36)
[2021-12-03] MEDS: SODIUM CHLORIDE 0.9 % (FLUSH) 10 ML SYRINGE 5 ML IVF ×6 (03:38→20:44)
[2021-12-03] MEDS: MORPHINE 4 MG/ML INJ IVP ×5 (06:09→20:30)
[2021-12-03 06:59] LABS: Basophils Percent Auto 0.2 % (0.0-3.0); Eosinophils Percent Auto 0.1 % (0.0-7.0); Hematocrit 38.4 % (37.0-53.0); Hemoglobin* 12.9 gm/dL (13.5-17.5); Immature Granulocytes Abs Auto 0.04 K/uL (0.00-0.30); Lymphocytes Percent Auto 7.4 % (20-44); Mean Corpuscular HGB Conc 34 gm/dL (32-36); Mean Corpuscular Hemoglobin 30 pg (26-34); Mean Corpuscular Volume 91 fL (80-100); Monocytes Percent Auto 11.3 % (0.0-11.0); Neutrophils Percent Auto 80.8 % (42.0-72.0); Platelet Count* 566 K/uL (140-440); RDW Coefficient of Variation % 15.6 % (11.5-15.5); Red Blood Count 4.24 m/uL (4.30-5.90); White Blood Count* 23.04 K/uL (4.50-11.00)
[2021-12-03 07:19] LABS: Slide Review Reflex No
[2021-12-03 07:22] LABS: Chloride* 90 mmol/L (96-114)
[2021-12-03 07:23] LABS: Albumin* 4.3 g/dL (3.3-5.0); Potassium* 5.2 mmol/L (3.6-5.1); Sodium* 131 mmol/L (135-149)
[2021-12-03 07:25] LABS: Bilirubin Total* 1.6 mg/dL (0.1-1.5); Carbon Dioxide* 26 mmol/L (20-32); Creatinine* 1.9 mg/dL (0.5-1.5); Est. Creatinine Clearance* 42.38; Estimated Glomerular Filt Rate 39 ml/min
[2021-12-03 07:26] LABS: Alanine Aminotransferase* 24 U/L (4-50); Alkaline Phosphatase* 84 U/L (40-150); Aspartate Amino Transferase* 24 U/L (12-35); Blood Urea Nitrogen* 45 mg/dL (7-30); Calcium* 9.4 mg/dL (8.4-10.6); Glucose* 108 mg/dL (60-115); Total Protein* 7.2 g/dL (6.0-8.3)
--- NOTE | 2021-12-03 07:40 | PC.NURSE ---
Pt came up from ED during night, c/o chest pain starting in the right side and going to the middle, SOB at rest and with activity. some relief of pain with prn morphine.
[2021-12-03 07:43] LABS: Troponin I* 0.17 ng/mL (0.01-0.04)
[2021-12-03] MEDS: APIXABAN 5 MG TABLET PO ×2 (09:14→20:28)
[2021-12-03 10:31] LABS: Potassium* 5.1 mmol/L (3.6-5.1)
--- NOTE | 2021-12-03 10:33 | REH.PT ---
Hold PT today per MD. Plan to attempt eval tomorrow if appropriate.
[2021-12-03 10:35] LABS: Creatinine* 1.8 mg/dL (0.5-1.5); Est. Creatinine Clearance* 44.74; Estimated Glomerular Filt Rate 42 ml/min
[2021-12-03 10:49] LABS: Troponin I* 0.19 ng/mL (0.01-0.04)
--- NOTE | 2021-12-03 11:10 | PC.NURSE ---
Lab called with critical troponin 0.19. Dr. Ohara aware. No further orders at this time.
[2021-12-03 12:40] LABS: Appearance Urine Clear (Clear); Bilirubin Urine Negative (Negative); Blood Urine Negative (Negative); Color Urine Yellow (Yellow); Glucose Urine Negative (Negative); Ketones Urine Negative (Negative); Leukocyte Esterase Urine Negative (Negative); Nitrite Urine Negative (Negative); Protein Urine 2+ (Negative); Urobilinogen Urine 0.2 (0.2-1.0)
[2021-12-03 12:55] LABS: Lactate* 1.2 mmol/L (0.5-1.9)
--- NOTE | 2021-12-03 12:55 | PM.IMHP1 ---
Hospitalist- H&P: HPI History of Present Illness Date Seen: 12/03/21 Chief complaint: SEVERE CHEST PAINS Narrative: Connie Pepper is a 61 year old male with past medical history of cardiac amyloidosis, systolic CHF, COPD, CVA, suspected multiple myeloma presenting for evaluation of chest pain. The patient presented to ED yesterday for pleuritic chest pain; worse with inspiration. He endorses SOB and occasional cough. His case was discussed with [facility] cardiology who felt symptoms likely from cardiac amyloidosis. He had previous Coronary angiogram in spring that showed no obstructive coronary disease.? Echocardiogram obtained on October 15 showed ejection fraction of 30-35% down from 42% in June.? He had mild concentric LVH, normal left ventricular size, moderately dilated right ventricle with moderately reduced global function.? It mild aortic regurgitation, mild mitral regurgitation and moderate tricuspid regurgitation.? Cardiac MRI and referral to [facility] was ordered for further evaluation of his worsening heart failure. The patient was noted to have troponin 0.21>0.19>0.17>0.19. EKG with sinus rhythm with 1st degree block. CT CAP showed Minimal stranding surrounds left abdominal small bowel loops, nonspecific may reflect enteritis. Small right pleural effusion. Small pericardial effusion. Cholelithiasis.Diverticulosis. Notable labs included WBC 22, sodium 131, potassium 5.2, Cr 1.9 BNP 3230. He was started on IVF, zosyn, and admitted for further management. He continues to endorse chest pain, mid sternal and pleuritic. SOB unchanged, denies nausea, vomiting, abdominal pain. Review of Systems Status of ROS: Reports: 10 or more systems reviewed and unremarkable except as noted in History and below [facility] Medical History Exertional dyspnea Thoracic lymphadenopathy Surgical History Status post carpal tunnel release Status post right knee replacement Family History Uncle CHF (congestive heart failure) Diabetes Brother Alcoholism High blood pressure Father Esophageal cancer Social History Narrative: Formally was a smoker, 48 pack-year history and quit in June. Formally drank alcohol heavily and quit in June 2021 as well. Has increasingly become a cardiac cripple with very poor exercise tolerance and dyspnea with any activity. Highest level of school completed/degree received: decline to answer Smoking Status: Never smoker Do you use any of these nicotine containing products: None Second hand tobacco smoke exposure: No How often do you have a drink containing alcohol: never AUDIT-C Alcohol total score: 0 Non-prescribed substance use: denies use Caffeine: No service: No Meds Home Medications and Allergies Home Medications Medication Instructions Recorded Confirmed Type aspirin 81 mg tablet,delayed 81 mg PO DAILY 10/31/21 12/03/21 History release atorvastatin 20 mg tablet 20 mg PO DAILY 10/31/21 12/03/21 History multivitamin with iron 1 tab PO QDAY 10/31/21 11/14/21 History albuterol sulfate 90 mcg/actuation 1 - 2 puff inhalation Q4H PRN 11/14/21 12/03/21 History aerosol inhaler bupropion HCl 300 mg 24 hr tablet, 300 mg PO DAILY 11/14/21 12/03/21 History extended release ipratropium 0.5 mg-albuterol 3 mg 3 ml inhalation QID 11/14/21 12/03/21 History (2.5 mg base)/3 mL nebulization soln sacubitril 24 mg-valsartan 26 mg 1 tab PO BID 11/14/21 11/14/21 History tablet (Entresto) thiamine HCl (vitamin B1) 100 mg 100 mg PO DAILY 11/14/21 12/03/21 History tablet tiotropium bromide 18 mcg capsule 1 cap inhalation DAILY 11/14/21 12/03/21 History with inhalation device (Spiriva with HandiHaler) torsemide 20 mg tablet 20 mg PO BID 11/14/21 12/03/21 History amiodarone 200 mg tablet 400 mg PO DAILY 12/03/21 12/03/21 History apixaban 5 mg tablet 5 mg PO BID 12/03/21 12/03/21 History losartan 25 mg tablet 12.5 mg PO DAILY 12/03/21 12/03/21 History spironolactone 25 mg tablet 25 mg PO DAILY 12/03/21 12/03/21 History trazodone 50 mg tablet 50 mg PO HS 12/03/21 12/03/21 History Allergies Allergy/AdvReac Type Severity Reaction Status Date / Time hydrocodone Allergy Mild Nausea Verified 10/31/21 11:07 metoprolol Allergy Mild Nausea Verified 10/31/21 11:07 oxycodone Allergy Mild Nausea Verified 10/31/21 11:07 amlodipine Allergy Unknown Abdominal Verified 10/31/21 11:07 Cramping chlorthalidone Allergy Unknown Angioedema Verified 10/31/21 11:07 terazosin Allergy Unknown Dizziness Verified 10/31/21 11:07 Beta Adrenergic Blockers Allergy Mild Nausea Uncoded 10/31/21 11:07 Exam Narrative: Exam Narrative: Gen: no acute distress HEENT: NCAT EOMI MMM CV: RRR normal s1 s2 Lungs: Bibasilar crackles; coarse breath sounds Abd: Soft, nt nd Neuro: AOX3, CN intact nonfocal screening exam Psych: appropriate affect Skin: warm, dry, no rash on face Const: Vital Signs, click to edit/add: Vital Signs - 24 hr 12/02/21 18:50 12/02/21 18:56 12/02/21 19:00 Temperature 98.4 F Pulse Rate 85 85 Pulse Rate [Pulse Oximeter] 85 Pulse Rate [Right Pulse Oximeter] Respiratory Rate 20 Blood Pressure Blood Pressure [Le ft Arm] Blood Pressure [Le ft Upper Arm] 95/71 Blood Pressure [Ri ght Arm] Pulse Oximetry 96 97 95 Oxygen Delivery Me thod Room Air Oxygen Flow Rate 12/02/21 19:09 12/02/21 19:06 12/02/21 19:32 Temperature Pulse Rate 86 82 Pulse Rate [Pulse Oximeter] Pulse Rate [Right Pulse Oximeter] Respiratory Rate Blood Pressure 112/88 85/65 L Blood Pressure [Le ft Arm] Blood Pressure [Le ft Upper Arm] Blood Pressure [Ri ght Arm] Pulse Oximetry 96 94 91 Oxygen Delivery Me thod Room Air Oxygen Flow Rate 12/02/21 19:33 12/02/21 19:54 12/02/21 20:02 Temperature Pulse Rate 81 80 81 Pulse Rate [Pulse Oximeter] Pulse Rate [Right Pulse Oximeter] Respiratory Rate Blood Pressure 83/61 L Blood Pressure [Le ft Arm] Blood Pressure [Le ft Upper Arm] Blood Pressure [Ri ght Arm] Pulse Oximetry 93 92 93 Oxygen Delivery Me thod Oxygen Flow Rate 12/02/21 20:03 12/02/21 20:13 12/02/21 20:14 Temperature Pulse Rate 81 83 82 Pulse Rate [Pulse Oximeter] Pulse Rate [Right Pulse Oximeter] Respiratory Rate Blood Pressure 80/59 L 100/63 Blood Pressure [Le ft Arm] Blood Pressure [Le ft Upper Arm] Blood Pressure [Ri ght Arm] Pulse Oximetry 92 95 95 Oxygen Delivery Me thod Oxygen Flow Rate 12/02/21 20:32 12/02/21 20:34 12/02/21 20:49 Temperature Pulse Rate 82 80 80 Pulse Rate [Pulse Oximeter] Pulse Rate [Right Pulse Oximeter] Respiratory Rate Blood Pressure 97/69 Blood Pressure [Le ft Arm] Blood Pressure [Le ft Upper Arm] Blood Pressure [Ri ght Arm] Pulse Oximetry 93 94 94 Oxygen Delivery Me thod Oxygen Flow Rate 12/02/21 21:31 12/02/21 21:32 12/02/21 22:02 Temperature Pulse Rate 81 80 80 Pulse Rate [Pulse Oximeter] Pulse Rate [Right Pulse Oximeter] Respiratory Rate Blood Pressure 99/73 96/73 Blood Pressure [Le ft Arm] Blood Pressure [Le ft Upper Arm] Blood Pressure [Ri ght Arm] Pulse Oximetry 95 94 94 Oxygen Delivery Me thod Oxygen Flow Rate 12/02/21 22:04 12/02/21 22:31 12/02/21 22:33 Temperature Pulse Rate 79 78 78 Pulse Rate [Pulse Oximeter] Pulse Rate [Right Pulse Oximeter] Respiratory Rate Blood Pressure 94/71 Blood Pressure [Le ft Arm] Blood Pressure [Le ft Upper Arm] Blood Pressure [Ri ght Arm] Pulse Oximetry 94 94 94 Oxygen Delivery Me thod Oxygen Flow Rate 12/02/21 23:02 12/02/21 23:04 12/03/21 00:01 Temperature Pulse Rate 78 77 78 Pulse Rate [Pulse Oximeter] Pulse Rate [Right Pulse Oximeter] Respiratory Rate Blood Pressure 103/66 Blood Pressure [Le ft Arm] Blood Pressure [Le ft Upper Arm] Blood Pressure [Ri ght Arm] Pulse Oximetry 96 95 94 Oxygen Delivery Me thod Oxygen Flow Rate 12/03/21 00:02 12/03/21 00:15 12/03/21 02:00 Temperature Pulse Rate 76 77 Pulse Rate [Pulse Oximeter] Pulse Rate [Right Pulse Oximeter] Respiratory Rate 24 Blood Pressure 91/67 Blood Pressure [Le ft Arm] 97/64 Blood Pressure [Le ft Upper Arm] Blood Pressure [Ri ght Arm] Pulse Oximetry 93 94 95 Oxygen Delivery Me thod Nasal Cannula Oxygen Flow Rate 2 12/03/21 02:32 12/03/21 01:26 12/03/21 00:32 Temperature 98.4 F Pulse Rate 77 Pulse Rate [Pulse Oximeter] 79 Pulse Rate [Right Pulse Oximeter] Respiratory Rate 24 24 Blood Pressure 96/68 Blood Pressure [Le ft Arm] Blood Pressure [Le ft Upper Arm] 95/71 Blood Pressure [Ri ght Arm] Pulse Oximetry 96 96 94 Oxygen Delivery Me thod Nasal Cannula Nasal Cannula Oxygen Flow Rate 2 2 12/03/21 01:02 12/03/21 01:32 12/03/21 00:00 Temperature Pulse Rate 77 78 Pulse Rate [Pulse Oximeter] Pulse Rate [Right Pulse Oximeter] Respiratory Rate Blood Pressure 96/70 101/74 Blood Pressure [Le ft Arm] Blood Pressure [Le ft Upper Arm] Blood Pressure [Ri ght Arm] Pulse Oximetry 94 94 94 Oxygen Delivery Me thod Nasal Cannula Oxygen Flow Rate 2 12/03/21 02:54 12/03/21 03:22 12/03/21 02:25 Temperature 98.4 F Pulse Rate Pulse Rate [Pulse Oximeter] 79 Pulse Rate [Right Pulse Oximeter] 81 Respiratory Rate 24 24 Blood Pressure Blood Pressure [Le ft Arm] 97/64 Blood Pressure [Le ft Upper Arm] 95/71 Blood Pressure [Ri ght Arm] Pulse Oximetry 96 96 Oxygen Delivery Me thod Nasal Cannula Nasal Cannula Oxygen Flow Rate 2 2 12/03/21 03:58 12/03/21 07:39 12/03/21 07:57 Temperature 97.8 F Pulse Rate 80 85 Pulse Rate [Pulse Oximeter] Pulse Rate [Right Pulse Oximeter] 86 Respiratory Rate 22 Blood Pressure Blood Pressure [Le ft Arm] Blood Pressure [Le ft Upper Arm] Blood Pressure [Ri ght Arm] 94/68 Pulse Oximetry 95 Oxygen Delivery Me thod Nasal Cannula Oxygen Flow Rate 2 12/03/21 07:57 12/03/21 11:17 Temperature 98.1 F Pulse Rate Pulse Rate [Pulse Oximeter] Pulse Rate [Right Pulse Oximeter] 81 Respiratory Rate 22 20 Blood Pressure Blood Pressure [Le ft Arm] Blood Pressure [Le ft Upper Arm] Blood Pressure [Ri ght Arm] 88/56 L Pulse Oximetry 95 94 Oxygen Delivery Me thod Nasal Cannula Nasal Cannula Oxygen Flow Rate 2 2 Hospitalist - H&P: Result Labs Labs: Short CBC 12/02/21 12/03/21 Range/Units 19:10 06:05 WBC 22.67 H 23.04 H (4.50-11.00) K/uL Hgb 12.9 L 12.9 L (13.5-17.5) gm/dL Hct 37.6 38.4 (37.0-53.0) % Plt Count 559 H 566 H (140-440) K/uL BMP 12/02/21 12/03/21 12/03/21 19:10 06:05 10:08 Sodium 128 L 131 L Potassium 4.8 5.2 H 5.1 Chloride 92 L 90 L Carbon Dioxide 24 26 BUN 42 H 45 H Creatinine 1.9 H 1.9 H 1.8 H Glucose 123 H 108 Calcium 9.3 9.4 Cardiac Enzymes 12/02/21 12/03/21 12/03/21 Range/Units 19:10 06:05 10:08 Troponin I 0.19 H* 0.17 H* 0.19 H* (0.01-0.04) ng/mL Liver Function 12/02/21 12/03/21 Range/Units 19:10 06:05 Total Bilirubin 1.1 1.6 H (0.1-1.5) mg/dL AST 28 24 (12-35) U/L ALT 26 24 (4-50) U/L Alkaline Phosphatase 91 84 (40-150) U/L Albumin 4.4 4.3 (3.3-5.0) g/dL Imaging CT Chest/Ab/Pelvis: Radiologist's impression: 1. Minimal stranding surrounds left abdominal small bowel loops, nonspecific may reflect enteritis. 2. Small right pleural effusion. 3. Small pericardial effusion. 4. Cholelithiasis. 5. Diverticulosis. Assessment and Plan Assessment and plan (1) Chest pain: Status: Acute (2) COPD (chronic obstructive pulmonary disease): Status: Acute (3) Heart failure with reduced ejection fraction: Status: Acute (4) Elevated troponin I level: Status: Acute (5) Hypotension: Status: Acute Plan Assessment: Connie Pepper is a 61 year old male with past medical history of cardiac amyloidosis, systolic CHF, COPD, CVA, suspected multiple myeloma presenting for evaluation of chest pain, sob, cough. In the ED His case was discussed with [facility] cardiology who felt symptoms likely from cardiac amyloidosis. He had previous Coronary angiogram in spring that showed no obstructive coronary disease.? Echocardiogram obtained on October 15 showed ejection fraction of 30-35%.? The patient was noted to have troponin 0.21>0.19>0.17>0.19. EKG with sinus rhythm with 1st degree block. CT CAP showed Minimal stranding surrounds left abdominal small bowel loops, nonspecific may reflect enteritis. Small right pleural effusion. Small pericardial effusion. Cholelithiasis.Diverticulosis. Notable labs included WBC 22, sodium 131, potassium 5.2, Cr 1.9 BNP 3230. He was started on IVF, zosyn, and admitted for further management. 1. Acute on chronic chest pain 2. Acute on chronic systolic CHF 3. Hx of cardiac amyloidosis 4. Hx of Pericardial Effusion 5. Hx of nonischemic cardiomyopathy 6. Hx of COPD 7. Hx of CVA 8. Suspected Multiple Myeloma 9. Hx of CVA 10. Mild hyperkalemia; resolving 11. Leukcoytosis 12. Hx of CKD Stage III, Cr 1.9 Plan -admit to inpatient -I discussed with [facility] Cardiology; again they felt that symptoms likely secondary to cardiac amyloidosis and CHF as opposed to cardiac ischemia, small pericardial effusion may be contributing, pericarditis less likely but on DDx -troponins have plateaued -continue morphine pain control -tele -repeat echo -continue eliquis -continue aspirin, statin, amiodarone -hold diuretics for now due to hypotension -dc IVF and start albumin -continue zosyn for now; obtain blood cx, lactate, procal, UA -once hemodynamically stable begin diuresis as tolerated -repeat troponin, potassium, and calcium gluconate ordered this AM CODE status-DNR/DNI DVT ppx-on eliquis
[2021-12-03] MEDS: ALBUMIN HUMAN 25% 100 ML VIAL IV (13:01)
[2021-12-03] MEDS: IPRAT-ALBUT 0.5-2.5 MG/3 ML NEB 1 NEB IH ×3 (13:11→20:19)
[2021-12-03 13:28] LABS: Amorphous Sediment Urine Many; Other Sediment Urine 0; RBC Urine 0-2 (0-2); WBC Urine 0-2 (0-5)
[2021-12-03 13:34] LABS: Procalcitonin* 0.44 ng/mL (<0.50)
--- NOTE | 2021-12-03 14:35 | PC.NURSE ---
Pt. experiences SOB at rest and with exertion. O2 sats 94-96% 2L/NC. RR 20-22. Fine crackles to bilateral lung bases. Morphine used for C/O chest pain. Telemetry NSR with 1st Degree AV Block and BBB. SBP 80s-90s, Dr. Ohara aware, Albumin administered.
--- NOTE | 2021-12-03 18:27 | PC.NURSE ---
shift note: pt noted to have increased breathing and rating chest pain 09/14 @ 1735. blood pressure @ 1545 87/61 p=88 r=24. Pt rr=28 jy=687/75 p=100 @ 1735. Dr. Roa notified of pt's change in pain. Orders to place pt on O2 mask, place calming patch and give 2mg morphine sulfate IV then report bp in 1 hour. LS remain clear. IV patent
[2021-12-03] MEDS: ATORVASTATIN 10 MG TABLET 20 MG PO (20:28)
[2021-12-04] VITALS (9 sets, daily range): BP systolic 97–114; BP diastolic 67–85; PULSE 91–95; RESP 20–30; TEMP 36.4–36.9; O2SAT 94–97
[2021-12-04] MEDS: MORPHINE 4 MG/ML INJ IVP ×7 (00:39→21:38)
[2021-12-04] MEDS: PIPERACILLIN/TAZOBACTAM 3.375 GM in 0.9 % SODIUM CHLORIDE Mini-bag 100 ML IVPB ×4 (03:22→20:50)
--- NOTE | 2021-12-04 05:37 | PC.NURSE ---
Shift 7p-7a: Pt. AOx4, following commands, on 2L oxymask with O2 sats 94%. Pt. has barking, moist cough which is now slightly productive per pt. report. Pt. c/o improvement in stabbing chest pain during night, states he still feels great discomfort overall. PRN morphine given. Pt.'s voiding well in urinal during night, states he would like to move around and sit up in chair today. Tele monitoring and cont. pulse ox in place, 1500mL fluid restriction, LT hand IV SL. Plan to transfer to [place] for PET scans
[2021-12-04 06:45] LABS: Basophils Percent Auto 0.3 % (0.0-3.0); Eosinophils Percent Auto 0.2 % (0.0-7.0); Hematocrit 34.8 % (37.0-53.0); Hemoglobin* 11.8 gm/dL (13.5-17.5); Immature Granulocytes Abs Auto 0.26 K/uL (0.00-0.30); Lymphocytes Percent Auto 7.5 % (20-44); Mean Corpuscular HGB Conc 34 gm/dL (32-36); Mean Corpuscular Hemoglobin 30 pg (26-34); Mean Corpuscular Volume 89 fL (80-100); Neutrophils Percent Auto 78.9 % (42.0-72.0); Platelet Count* 545 K/uL (140-440); RDW Coefficient of Variation % 15.2 % (11.5-15.5); Red Blood Count 3.91 m/uL (4.30-5.90); White Blood Count* 24.57 K/uL (4.50-11.00)
[2021-12-04 06:53] LABS: Slide Review Reflex No
[2021-12-04 06:57] LABS: Chloride* 91 mmol/L (96-114)
[2021-12-04 06:58] LABS: Potassium* 4.6 mmol/L (3.6-5.1); Sodium* 128 mmol/L (135-149)
[2021-12-04 07:01] LABS: Blood Urea Nitrogen* 51 mg/dL (7-30); Calcium* 9.4 mg/dL (8.4-10.6); Carbon Dioxide* 22 mmol/L (20-32); Creatinine* 1.7 mg/dL (0.5-1.5); Est. Creatinine Clearance* 47.37; Estimated Glomerular Filt Rate 45 ml/min; Glucose* 99 mg/dL (60-115)
[2021-12-04] MEDS: AMIODARONE 200 MG TABLET 400 MG PO (08:32)
[2021-12-04] MEDS: ASPIRIN 81 MG TABLET EC PO (08:32)
[2021-12-04] MEDS: THIAMINE 100 MG TABLET PO (08:32)
[2021-12-04] MEDS: buPROPion XL 150 MG TABLET 300 MG PO (08:32)
[2021-12-04] MEDS: APIXABAN 5 MG TABLET PO ×2 (08:32→20:51)
[2021-12-04] MEDS: IPRAT-ALBUT 0.5-2.5 MG/3 ML NEB 1 NEB IH ×4 (08:37→20:50)
[2021-12-04] MEDS: SODIUM CHLORIDE 0.9 % (FLUSH) 10 ML SYRINGE 5 ML IVF ×6 (09:02→21:39)
[2021-12-04] MEDS: TORSEMIDE 20 MG TABLET PO ×2 (09:45→20:51)
[2021-12-04] MEDS: ONDANSETRON 2 MG/ML inj 4 MG IVP (16:02)
--- NOTE | 2021-12-04 17:40 | P.IMPN_ITS ---
Progress Note: A&P Assessment and plan (1) Chest pain: Status: Acute (2) History of non-ST elevation myocardial infarction (NSTEMI): Status: Acute (3) Elevated troponin I level: Status: Acute (4) Cardiac amyloidosis: Status: Acute (5) Heart failure with reduced ejection fraction: Status: Acute (6) Hypotension: Status: Acute (7) Dehydration: Status: Acute (8) Weakness: Status: Acute (9) Exertional dyspnea: Status: Acute (10) Acute kidney injury: Status: Acute (11) Chronic kidney disease, stage 3b: Status: Acute (12) Multiple myeloma: Problem details: Suspected, still being assessed. Status: Acute (13) Pleural effusion: Status: Acute (14) Pericardial effusion: Status: Acute (15) Elevated C-reactive protein (CRP): Status: Acute (16) COPD (chronic obstructive pulmonary disease): Status: Acute (17) Thoracic lymphadenopathy: Status: Acute Plan 1. Listen to the patient and his . 2. Initiate diuresis today with his torsemide. Will start at 20 mg twice daily. 3. Full not really start his spironolactone today due to the hypotensive affects that it has and his blood pressures are still relatively low at this juncture. 4. Will attempt to coordinate future cares for the patient at [facility]. Discuss this with the patient his . 5. Depending how we progress with our efforts to stabilize his condition we may need to consider transferring. 6. Will consider initiation of discussion about treatment of the adjustment reaction with anxiety and depression such as with an SSRI. Time Spent With Patient Total time spent: 30 minutes Subjective Time Seen by Provider: 08:30 Date Seen: 12/04/21 Interval history: 61-year-old man with complicated medical history. Has known cardiac amyloidosis. Is suspected of having multiple myeloma. Has chronic heart failure with low ejection fraction, 20-25% by echo during this hospital stay. Has known severe tricuspid valve regurgitation. Was hypotensive on presentation with low albumin. Albumin administered yesterday. He does not feel any better today than he did yesterday. Has dyspnea with minimal exertion. Is extremely anxious about having more chest pain and having sudden cardiac . Is also anxious about the workup for the possible myeloma which is put on hold since he has been in this hospital. He wonders out loud with me why he came to our hospital instead of underlying [facility] where he has been receiving all of his cares previously. Denies nausea or vomiting. Has decreased appetite. No chest heaviness, pressure, tightness, or pain at this time. Denies syncope or near-syncope. Denies near-syncope. Denies orthostasis at this time. Exam Narrative: Exam Narrative: Appropriately anxious. Alert. Oriented to self, place, time, situation. Mood and affect are congruent. Sitting in the upright position he has jugular venous distention as well as hepatojugular reflux. No carotid bruits. Distant heart tones. Regular rhythm. Still requiring oxygen support. Decreased breath sounds in both bases otherwise clear without wheezing, rhonchi, or rales. Abdomen obese, active bowel sounds, soft, nontender. Extremities with only minimal trace edema pretibially bilaterally. Independent transfer, station and gait. No focal motor neurologic deficits. Const: Vital Signs, click to edit/add: Vital Signs - 24 hr 12/03/21 18:14 12/03/21 18:55 12/03/21 19:00 Temperature 98.9 F Pulse Rate 99 Pulse Rate [Right Pulse Oximeter] 96 96 Respiratory Rate 18 24 Blood Pressure [Ri ght Arm] 99/64 94/64 Pulse Oximetry 96 96 Oxygen Delivery Me thod OxyMask OxyMask Oxygen Flow Rate 3.5 3.5 12/03/21 23:00 12/03/21 23:00 12/04/21 00:58 Temperature 98.7 F Pulse Rate 95 Pulse Rate [Right Pulse Oximeter] 94 94 Respiratory Rate 22 22 Blood Pressure [Ri ght Arm] 111/87 Pulse Oximetry 95 Oxygen Delivery Me thod OxyMask Oxygen Flow Rate 3.5 12/04/21 03:00 12/04/21 07:04 12/04/21 08:13 Temperature 98.4 F Pulse Rate 91 Pulse Rate [Right Pulse Oximeter] 91 Respiratory Rate 22 Blood Pressure [Ri ght Arm] 114/80 Pulse Oximetry 94 96 Oxygen Delivery Me thod OxyMask OxyMask Oxygen Flow Rate 2 2 12/04/21 08:13 12/04/21 12:42 12/04/21 15:00 Temperature 98.1 F 97.9 F Pulse Rate Pulse Rate [Right Pulse Oximeter] 92 93 92 Respiratory Rate 20 22 30 H Blood Pressure [Ri ght Arm] 106/85 97/75 Pulse Oximetry 96 97 Oxygen Delivery Me thod OxyMask OxyMask Oxygen Flow Rate 2 2 12/04/21 16:00 Temperature 97.9 F Pulse Rate Pulse Rate [Right Pulse Oximeter] 92 Respiratory Rate 30 H Blood Pressure [Ri ght Arm] 105/74 Pulse Oximetry 95 Oxygen Delivery Me thod OxyMask Oxygen Flow Rate 2 Documenting provider has reviewed patient's vital signs: yes Labs Labs: Laboratory Results - last 24 hr 12/04/21 12/04/21 06:12 06:12 WBC 24.57 H RBC 3.91 L Hgb 11.8 L Hct 34.8 L MCV 89 MCH 30 MCHC 34 RDW Coeff of Maximo 15.2 Plt Count 545 H Neut % (Auto) 78.9 H Lymph % (Auto) 7.5 L [place] % (Auto) 12.0 H Eos % (Auto) 0.2 Baso % (Auto) 0.3 Neut # (Auto) 19.40 H Lymph # (Auto) 1.80 [place] # (Auto) 2.90 H Eos # (Auto) 0.00 Baso # (Auto) 0.10 Abs Immat Gran (auto) 0.26 Sodium 128 L Potassium 4.6 Chloride 91 L Carbon Dioxide 22 BUN 51 H Creatinine 1.7 H Estimated Creat Clear 47.37 Estimated GFR 45 Glucose 99 Calcium 9.4
[2021-12-04] MEDS: OXYCODONE 5 MG TABLET PO (18:56)
[2021-12-04] MEDS: ATORVASTATIN 10 MG TABLET 20 MG PO (20:51)
[2021-12-05] VITALS (9 sets, daily range): BP systolic 99–106; BP diastolic 66–78; PULSE 86–98; RESP 20–30; TEMP 36.2–36.6; O2SAT 92–97
[2021-12-05] MEDS: OXYCODONE 5 MG TABLET PO ×3 (01:05→10:26)
[2021-12-05] MEDS: MORPHINE 4 MG/ML INJ IVP ×8 (01:06→23:28)
[2021-12-05] MEDS: PIPERACILLIN/TAZOBACTAM 3.375 GM in 0.9 % SODIUM CHLORIDE Mini-bag 100 ML IVPB ×4 (03:07→21:25)
[2021-12-05 06:40] LABS: HCO3 VBG 26 mmol/L (21-28); PCO2 VBG 53 mmHG (40-50); PO2 VBG 21.1 mmHG (25-47); pH VBG 7.294 (7.32-7.43)
[2021-12-05 06:50] LABS: Hematocrit 37.4 % (37.0-53.0); Hemoglobin* 12.5 gm/dL (13.5-17.5); Mean Corpuscular HGB Conc 33 gm/dL (32-36); Mean Corpuscular Hemoglobin 30 pg (26-34); Mean Corpuscular Volume 91 fL (80-100); Platelet Count* 548 K/uL (140-440); Red Blood Count 4.12 m/uL (4.30-5.90); White Blood Count* 22.92 K/uL (4.50-11.00)
[2021-12-05 07:12] LABS: Slide Review Reflex No
[2021-12-05 07:22] LABS: Albumin* 4.1 g/dL (3.3-5.0); Chloride* 90 mmol/L (96-114); Sodium* 129 mmol/L (135-149)
[2021-12-05 07:23] LABS: Potassium* 4.8 mmol/L (3.6-5.1)
[2021-12-05 07:25] LABS: Creatinine* 1.7 mg/dL (0.5-1.5); Est. Creatinine Clearance* 47.37; Estimated Glomerular Filt Rate 45 ml/min
[2021-12-05 07:26] LABS: Blood Urea Nitrogen* 59 mg/dL (7-30); Calcium* 9.5 mg/dL (8.4-10.6); Carbon Dioxide* 24 mmol/L (20-32); Glucose* 117 mg/dL (60-115)
[2021-12-05 07:28] LABS: C Reactive Protein* 8.9 mg/dL (0.5-1.0)
[2021-12-05 07:34] LABS: NT Pro B Type NatriureticPept* 6500 PG/mL (0-125)
[2021-12-05 07:44] LABS: Phosphorus* 6.2 mg/dL (2.5-4.5)
[2021-12-05 07:45] LABS: Troponin I* 0.65 ng/mL (0.01-0.04)
--- NOTE | 2021-12-05 07:50 | PC.NURSE ---
15-07: Calls appropriately. SBA. SOB at rest and exertion. Decreased appetite, did not eat dinner. c/o pain in chest and left shoulder 7-12/15, see eMAR. Ice to shoulder aided in pain relief. Persistent dry cough, pt offered throat lozenges. Compliant with 1.5L Fluid Restriction, mouth moisturizer at bedside. VSS. Soft BPs. 2L via oxymask, sats 93-96%. Afebrile.
[2021-12-05] MEDS: AMIODARONE 200 MG TABLET 400 MG PO (09:57)
[2021-12-05] MEDS: buPROPion XL 150 MG TABLET 300 MG PO (09:58)
[2021-12-05] MEDS: APIXABAN 5 MG TABLET PO ×2 (09:58→20:56)
[2021-12-05] MEDS: ASPIRIN 81 MG TABLET EC PO (09:58)
[2021-12-05] MEDS: SODIUM CHLORIDE 0.9 % (FLUSH) 10 ML SYRINGE 5 ML IVF ×3 (09:59→20:57)
[2021-12-05] MEDS: THIAMINE 100 MG TABLET PO (09:59)
[2021-12-05] MEDS: IPRAT-ALBUT 0.5-2.5 MG/3 ML NEB 1 NEB IH ×4 (09:59→20:56)
[2021-12-05] MEDS: TORSEMIDE 20 MG TABLET 40 MG PO ×2 (10:25→20:56)
[2021-12-05 16:16] LABS: Troponin I* 0.66 ng/mL (0.01-0.04)
--- NOTE | 2021-12-05 16:51 | P.IMPN_ITS ---
Progress Note: A&P Assessment and plan (1) Chest pain: Status: Acute Assessment and Plan: 1. Improved. (2) History of non-ST elevation myocardial infarction (NSTEMI): Status: Acute (3) Elevated troponin I level: Status: Acute Assessment and Plan: 1. Troponin I's continue to rise. This morning value was 0.65. This afternoon's value of 0.66. (4) Cardiac amyloidosis: Status: Acute (5) Heart failure with reduced ejection fraction: Status: Acute Assessment and Plan: 1. Increased dose of torsemide from 20 mg p.o. b.i.d. to 40 mg p.o. b.i.d.. 2. Weight on admission is listed as 106 kg, yesterday's weight is listed as 108 kg, today's weight is listed as 109 kg. (6) Hypotension: Status: Acute Assessment and Plan: 1. Continue with current efforts. Continue to monitor this carefully. (7) Dehydration: Status: Acute Assessment and Plan: 1. No longer intravascularly volume depleted. (8) Weakness: Status: Acute Assessment and Plan: 1. General sense of weakness is slowly improving. (9) Exertional dyspnea: Status: Acute Assessment and Plan: 1. Dyspnea with exertion is slowly improving. (10) Acute kidney injury: Status: Acute Assessment and Plan: 1. Renal function panel remains stable. (11) Chronic kidney disease, stage 3b: Status: Acute (12) Multiple myeloma: Problem details: Suspected, still being assessed. Status: Acute (13) Pleural effusion: Status: Acute (14) Pericardial effusion: Status: Acute (15) Elevated C-reactive protein (CRP): Status: Acute (16) COPD (chronic obstructive pulmonary disease): Status: Acute Assessment and Plan: 1. Generally stable. (17) Thoracic lymphadenopathy: Status: Acute (18) Hyponatremia: Status: Acute Assessment and Plan: 1. Fluid restriction. Plan 1. I called and spoke with Dr. Dupont, [facility]. He agree that the patient would benefit from transferring to a tertiary medical center. There are no beds available at this time. He recommended we continue with our diuresis efforts. Should his condition become critical in the patient require ICU level of care that they do have a ICU level bed available for him. Time Spent With Patient Total time spent: 40 minutes Subjective Time Seen by Provider: 07:00 Date Seen: 12/05/21 Interval history: Hospital day number 3. 61-year-old man with complicated medical history. Has known cardiac amyloidosis. Is suspected of having multiple myeloma. Has known biventricular heart failure with left ejection fraction 20-25% by echo during this hospital stay. Has known severe tricuspid valve regurgitation. Was hypotensive on presentation with low albumin. Albumin administered 2 days ago and then yesterday we initiated diuresis with his usual dose of torsemide 20 mg twice daily. I did not resume his spironolactone that he normally takes as well due to its hypotensive FX and his relatively hypotensive state with systolic blood pressures of around 100. He feels a little better today than he did yesterday. Still has dyspnea with minimal exertion, but noticeably he is able to do more including walking in the halls. Remains extremely anxious about the possibility of having more chest pain and having sudden cardiac . Is also anxious about the workup for the possibility of having multiple myeloma which is now on hold since he has been in this hospital. He again wonders out loud with me, why he came to our hospital instead of going directly to an [facility] where he has been receiving all of his cares previously. Denies nausea or vomiting. Has decreased appetite. No chest heaviness, pressure, tightness, or pain at this time. Denies syncope or near-syncope. Denies near-syncope. Denies orthostasis at this time. Exam Narrative: Exam Narrative: Much less anxious and angry today than he was yesterday. Alert, oriented to self, place, time, situation. Mood and affect are congruent. Has jugular venous distention and hepatojugular reflux while sitting upright. Bibasilar rales without wheezing or rhonchi. Heart tones with regular rhythm, normal S1-S2. Extremities with only trace edema pretibially bilaterally. Independent transfer, station, and gait. Skin is warm, dry, intact. Const: Vital Signs, click to edit/add: Vital Signs - 24 hr 12/04/21 19:04 12/04/21 23:00 12/05/21 00:00 Temperature 97.6 F 97.9 F Pulse Rate [Right Pulse Oximeter] 91 91 86 Respiratory Rate 28 H 28 H 20 Blood Pressure [Ri ght Arm] 97/67 101/69 Pulse Oximetry 96 96 Oxygen Delivery Me thod OxyMask OxyMask Oxygen Flow Rate 2 2 12/05/21 04:00 12/05/21 07:00 12/05/21 08:00 Temperature 98 F 97.7 F Pulse Rate [Right Pulse Oximeter] 87 95 95 Respiratory Rate 22 27 H 27 H Blood Pressure [Ri ght Arm] 99/66 106/73 Pulse Oximetry 95 92 Oxygen Delivery Me thod OxyMask Nasal Cannula Oxygen Flow Rate 2 2 12/05/21 12:00 Temperature 97.2 F L Pulse Rate [Right Pulse Oximeter] 92 Respiratory Rate 24 Blood Pressure [Ri ght Arm] 100/78 Pulse Oximetry 94 Oxygen Delivery Me thod OxyMask Oxygen Flow Rate 2 Documenting provider has reviewed patient's vital signs: yes Labs Labs: Laboratory Results - last 24 hr 12/05/21 12/05/21 12/05/21 06:23 06:23 06:23 WBC 22.92 H RBC 4.12 L Hgb 12.5 L Hct 37.4 MCV 91 MCH 30 MCHC 33 Plt Count 548 H VBG pH 7.294 L VBG pCO2 53 H VBG pO2 21.1 L VBG HCO3 26 Sodium 129 L Potassium 4.8 Chloride 90 L Carbon Dioxide 24 BUN 59 H Creatinine 1.7 H Estimated Creat Clear 47.37 Estimated GFR 45 Glucose 117 H Lactate 2.0 H Calcium 9.5 Phosphorus 6.2 H* Troponin I 0.65 H* C-Reactive Protein 8.9 H NT-Pro-B Natriuret Pep 6500 H Albumin 4.1 12/05/21 15:31 WBC RBC Hgb Hct MCV MCH MCHC Plt Count VBG pH VBG pCO2 VBG pO2 VBG HCO3 Sodium Potassium Chloride Carbon Dioxide BUN Creatinine Estimated Creat Clear Estimated GFR Glucose Lactate Calcium Phosphorus Troponin I 0.66 H* C-Reactive Protein NT-Pro-B Natriuret Pep Albumin
--- NOTE | 2021-12-05 19:08 | PC.NURSE ---
shift [id number] pt this shift cooperative with cares. refused exercises and getting up to chair d/t increased SOB and mental exhaustion. Pain and SOB controlled with morphine, see eMAR. pt states SOB worse today. Paroxysmal Afib this afternoon, 12 lead EKG done, confirmed Afib and MD notified, pt came out of Afib without intervention. Bed found at [facility] in [facility] on the cardiac floor. Questions and concerns answered with hospitalist.
[2021-12-05] MEDS: LORazepam 2 MG/ML inj 1 MG IVP (19:28)
[2021-12-05] MEDS: ATORVASTATIN 10 MG TABLET 20 MG PO (20:56)
--- NOTE | 2021-12-06 00:21 | PC.NURSE ---
pt d/c via nonemergent EMS at 2330. 4mg Morphine given upon d/c. belongings form reviewed with pt, belongings sent on cart.
--- NOTE | 2021-12-11 09:27 | PM.DS1 ---
DS: Providers Provider Time Seen by Provider: 11:00 Date Seen: 12/05/21 Date of admission: 12/03/21 12:39 Primary care physician: Dorinda Watt DO Admitting Clinician: [place] Malcolm MD Consults: 12/03/21 02:44 Consult to Physical Therapy [CONS] Routine Comment: Reason(s) for PT Consult:: Unstable Gait Any Restrictions?:: See Comment Attending Physician on discharge: Brodie Riojas MD Date of Discharge: 12/05/21 DS: Diagnosis Discharge Diagnosis (1) Elevated troponin I level: Status: Acute (2) Chest pain: Status: Acute (3) Cardiac amyloidosis: Status: Acute (4) Pericardial effusion: Status: Acute (5) Pleural effusion: Status: Acute (6) Elevated C-reactive protein (CRP): Status: Acute (7) Acute kidney injury: Status: Acute (8) Chronic kidney disease, stage 3b: Status: Acute (9) Adjustment disorder with anxiety: Status: Acute (10) History of non-ST elevation myocardial infarction (NSTEMI): Status: Acute (11) COPD (chronic obstructive pulmonary disease): Status: Acute (12) Hyponatremia: Status: Acute (13) Exertional dyspnea: Status: Acute (14) Thoracic lymphadenopathy: Status: Acute (15) Multiple myeloma: Status: Acute Problem details: Suspected, still being assessed. (16) Hypotension: Status: Acute (17) Heart failure with reduced ejection fraction: Status: Acute (18) Dehydration: Status: Acute DS: Summary Hospital Course Hospital Course: At this time patient presents in the setting of past history of congestive heart failure with reduced ejection fraction as well as chronic chest pain, recent cardiac biopsy, recent diagnosis cardia amyloidosis and potential diagnosis of multiple myeloma. Patient had IV established and oxygen place. EKG, troponin, CBC, comprehensive panel, lactate, CRP and urinalysis are all ordered at this time. Will also order morphine 4 mg and Zofran 4 mg. Also will get D-dimer and proBNP as well as COVID swab. 1:26 a.m. I spoke to [facility] hospitalist, patient's CT came back showing no evidence of dissection, per the discussion with from [facility] patient will be admitted to this hospital, on telemetry, use morphine for the discomfort, and have an echocardiogram ordered for the morning. Inpatient hospitalist is to call [facility] for further helping care and managing this patient. Cardiology does not feel that his troponins are elevated secondary to ischemic issues. With no evidence of dissection on CT, they do not feel is a complication of the recent catheterization. Patient's condition did not improve much during the course hospitalization. Our efforts were focus on trying to diurese him at the same time we are trying to transfer him to a tertiary medical facility that could further assist him. Eventually we are full to make connection with [facility]. Dr. Gaffney accepted the patient in transfer. Time Spent with Patient Time attestation: Total time spent providing and/or coordinating discharge services: Exam Narrative: Exam Narrative: Much less anxious and angry today than he was yesterday. Alert, oriented to self, place, time, situation. Mood and affect are congruent.? Has jugular venous distention and hepatojugular reflux while sitting upright.? Bibasilar rales without wheezing or rhonchi.? Heart tones with regular rhythm, normal S1-S2. Extremities with only trace edema pretibially bilaterally.? Independent transfer, station, and gait.? Skin is warm, dry, intact. Const: Documenting provider has reviewed patient's vital signs: yes DS: Data Imaging Echo: Radiologist's impression: Biventricular heart failure. Left ejection fraction about 25%, reduced from most recent echocardiogram. CT scan - chest: Attestation: I have reviewed the pertinent imaging results. Radiologist's impression: 1. Minimal stranding surrounds left abdominal small bowel loops, nonspecific may reflect enteritis. 2. Small right pleural effusion. 3. Small pericardial effusion. 4. Cholelithiasis. 5. Diverticulosis. Discharge Plan Discharge Disposition: Xfer Other Discharge Location: Date of Admission: 12/03/21 12:39 Attending Provider on Discharge: Arpita Roa Primary Care Provider: Dorinda Watt Condition: Unchanged Anticipated Discharge Date/Time: 12/05/21 18:00 Discharge Medications: Continued atorvastatin 20 mg tablet 20 mg PO DAILY multivitamin with iron Tablet 1 tab PO QDAY aspirin 81 mg tablet,delayed release (DR/EC) 81 mg PO DAILY albuterol sulfate 90 mcg/actuation HFA aerosol inhaler 1 - 2 puff INHALATION Q4H PRN bupropion HCl 300 mg tablet extended release 24 hr 300 mg PO DAILY ipratropium-albuterol 0.5 mg-3 mg(2.5 mg base)/3 mL solution for nebulization 3 ml INHALATION QID Entresto 24-26 mg tablet 1 tab PO BID Spiriva with HandiHaler 18 mcg capsule, w/inhalation device 1 cap INHALATION DAILY torsemide 20 mg tablet 20 mg PO BID thiamine HCl (vitamin B1) 100 mg tablet 100 mg PO DAILY amiodarone 200 mg tablet 400 mg PO DAILY Rx Instructions: 400 MG BID X 2 DAYS 400 MG DAILY X 7 DAYS 200 MG DAILY X 21 DAYS apixaban 5 mg tablet 5 mg PO BID losartan 25 mg tablet 12.5 mg PO DAILY spironolactone 25 mg tablet 25 mg PO DAILY trazodone 50 mg tablet 50 mg PO HS Discharge Orders: Discharge Order (Routine); Ordered 12/06/21 Ordered By: Arpita Roa Follow Up Appointments: Provider,Not a Local [Referring] - Dorinda Watt DO [Primary Care Provider] - Forms: [employer] Info Instructions Hospital Course: At this time patient presents in the setting of past history of congestive heart failure with reduced ejection fraction as well as chronic chest pain, recent cardiac biopsy, recent diagnosis cardia amyloidosis and potential diagnosis of multiple myeloma. Patient had IV established and oxygen place. EKG, troponin, CBC, comprehensive panel, lactate, CRP and urinalysis are all ordered at this time. Will also order morphine 4 mg and Zofran 4 mg. Also will get D-dimer and proBNP as well as COVID swab. 1:26 a.m. I spoke to [facility] hospitalist, patient's CT came back showing no evidence of dissection, per the discussion with from [facility] patient will be admitted to this hospital, on telemetry, use morphine for the discomfort, and have an echocardiogram ordered for the morning. Inpatient hospitalist is to call [facility] for further helping care and managing this patient. Cardiology does not feel that his troponins are elevated secondary to ischemic issues. With no evidence of dissection on CT, they do not feel is a complication of the recent catheterization. Patient's condition did not improve much during the course hospitalization. Our efforts were focus on trying to diurese him at the same time we are trying to transfer him to a tertiary medical facility that could further assist him. Eventually we are full to make connection with [facility]. Dr. Gaffney accepted the patient in transfer.
== END 2021-12-05 23:45 | disposition other institution (70) | DRG 346 ==
LOC: ED 12-03 01:29 → MEDSURG 12-03 01:49
PROVIDERS: Internal Medicine; Admitting Provider Family Medicine; Emergency Provider Family Medicine; PCP Family Medicine; Visit Provider Hospitalist
DX: E85.4 Organ-limited amyloidosis (principal); I43 Cardiomyopathy in diseases classified elsewhere; C90.00 Multiple myeloma not having achieved remission; I08.3 Combined rheumatic disorders of mitral, aortic and tricuspid valves; I13.0 Hypertensive heart and chronic kidney disease with heart failure and stage 1 through stage 4 chronic kidney disease, or unspecified chronic kidney disease; I50.23 Acute on chronic systolic (congestive) heart failure; N18.32 Chronic kidney disease, stage 3b; N17.9 Acute kidney failure, unspecified; I50.82 Biventricular heart failure; R07.9 Chest pain, unspecified; G89.29 Other chronic pain; J44.9 Chronic obstructive pulmonary disease, unspecified; E87.5 Hyperkalemia; E86.0 Dehydration; R59.0 Localized enlarged lymph nodes; I31.3 Pericardial effusion (noninflammatory); F43.22 Adjustment disorder with anxiety; F32.A Depression, unspecified; E78.5 Hyperlipidemia, unspecified; Z96.651 Presence of right artificial knee joint; Z86.73 Personal history of transient ischemic attack (TIA), and cerebral infarction without residual deficits; Z87.891 Personal history of nicotine dependence; Z80.0 Family history of malignant neoplasm of digestive organs
CPT/HCPCS: 36415; 71045; 71250; 74176; 80048; 80053; 80069; 81001; 82565; 82803; 83605; 83735; 83880; 84132; 84145; 84484; 85025; 85027; 85379; 86140; 87040; 87631; 87635; 93005; 93306; 93321; 93325; 94640; 94761; 97116; 97162; 97530; 99285; G0378; A9270; J0610; J2060; J2270; J2405; J2543; J7050; P9047

== ENCOUNTER 2021-12-05 23:19 | Outpatient (CLI) | payer BC, SELFPAY | END 2021-12-05 23:20 | disposition home or self-care (01) | PROVIDERS: PCP Family Medicine; Visit Provider Family Medicine | DX: I50.9 Heart failure, unspecified (principal); R53.1 Weakness; R77.8 Other specified abnormalities of plasma proteins | CPT/HCPCS: A0425; A0427 ==